=== PATIENT | female | born 1975 | race Native Hawaiian/Other Pacific Islander ===

== ENCOUNTER 2018-03-17 23:19 | Emergency (ER) | payer OTHER ==
[~2018-03-17] VITALS: Ht 170.2 cm; Wt 149.7 kg
[~2018-03-17 23:19] MED LIST: ACTICIN 5% CREA60 G1 TOP; AMOXICILLIN875 MG PO; CIPROFLOXACIN500 M1 PO; DAYQUIL; HYDROCODON-ACE1 EAC7 PO; HYDROCODONE-AP1 EAC6 PO; HYDROCODONE-APA1 TA1 PO; IBUPROFEN 800800 M1 PO; INDOMETHACIN 2525 MG PO; IRON325 M1 PO; MEDROLDOSEPACK PO; METFORMIN HCL500 MG PO; NAPROSYN500 MG PO; NOHOMEMEDICATIONS; NORCO 5-325 TA1 EAC1 PO; PAXIL10 MG; PREDNISONE 20 M20 MG PO; PROAIR HFA8.5 GM INH; TESSALON PERLE100 MG PO; TRAMADOL 50 MG50 MG PO
[2018-03-17 23:44] LABS: URINE BILIRUBIN NEGATIVE (Negative); URINE BLOOD 2+ (Negative); URINE CLARITY CLEAR; URINE COLOR YELLOW; URINE GLUCOSE-RANDOM NEGATIVE (Negative); URINE KETONES NEGATIVE (Negative); URINE LEUKOCYTES-REFLEX NEGATIVE (Negative); URINE NITRITE-REFLEX NEGATIVE (Negative); URINE PROTEIN NEGATIVE (Negative); URINE SPECIFIC GRAVITY >= 1.030 (1.005-1.030); URINE UROBILINOGEN 0.2 E.U./dl (0.2-1.0)
[2018-03-17 23:51] LABS: ABSOLUTE BASOPHILS 0.1 thou/uL (0.0-0.2); ABSOLUTE EOSINOPHILS 0.2 thou/uL (0.0-0.7); ABSOLUTE LYMPHOCYTES 3.3 thou/uL (0.8-5.3); ABSOLUTE MONOCYTES 1.1 thou/uL (0.0-1.2); ABSOLUTE NEUTROPHILS 7.1 thou/uL (1.6-8.1); EOSINOPHILS 1.8 %; HEMATOCRIT 38.2 % (37.0-47.0); HEMOGLOBIN 12.3 gm/dL (12.0-15.0); LYMPHOCYTES 27.8 %; MCHC 32.1 g/dL (28.0-37.0); MCV 84.2 fL (80.0-100.0); MPV 8.9 fl. (7.2-11.1); NUCLEATED RBCS 0 /100WBC; PLATELET COUNT* 201 thou/uL (150-400); POLYS 60.4 %; RBC 4.54 mil/uL (4.20-5.00); RDW-CV 16.6 % (10.5-14.5); WBC 11.8 thou/uL (4.0-11.0)
[2018-03-18 00:01] LABS: CALCIUM 8.8 mg/dL (8.5-10.1); POTASSIUM 3.7 mmol/L (3.5-5.1)
[2018-03-18 00:14] LABS: TOTAL BILIRUBIN 0.4 mg/dL (<0.1-1.0); TOTAL PROTEIN 7.8 g/dL (6.4-8.2)
[2018-03-18 00:25] LABS: CASTS None Seen /LPF (None Seen); CRYSTALS None Seen /LPF (None Seen); MUCUS 4-6 Moderate strn/LPF (None Seen); SQUAMOUS 0-3 Few /LPF (0-3); URINE RBC 3-10 Few /HPF (0-2); URINE WBC-REFLEX None Seen /HPF (0-5)
[2018-03-18] MEDS ORDERED: ACETAMINOPHEN-1 EAC1 PO (01:17)
[2018-03-18] MEDS ORDERED: KEFLEX500 M1 PO (01:17)
[2018-03-18] MEDS ORDERED: ZOFRAN4 MG PO (01:17)
[2018-03-18 01:34] VITALS: BP 103/70
== END 2018-03-18 01:36 | disposition home or self-care (01) ==
LOC: M.ERS 23:19
PROVIDERS: Personal Emergency Response Attendant
DX: N39.0 Urinary tract infection, site not specified (principal); Z90.710 Acquired absence of both cervix and uterus; Z85.42 Personal history of malignant neoplasm of other parts of uterus

== ENCOUNTER 2018-08-01 18:13 | Inpatient (IN) | payer OTHER ==
[~2018-08-01] VITALS: Ht 170.2 cm; Wt 148.3 kg
[~2018-08-01 18:13] MED LIST changes: +ACETAMINOPHEN-1 EAC1 PO; +KEFLEX500 M1 PO; +ZOFRAN4 MG PO
[2018-08-01 18:42] VITALS: BP 147/87
[2018-08-01] MEDS ORDERED: VENTOLIN HFA 1818 GM INH (18:46)
[2018-08-01 21:17] LABS: ABSOLUTE BASOPHILS 0.1 thou/uL (0.0-0.2); ABSOLUTE EOSINOPHILS 0.1 thou/uL (0.0-0.7); ABSOLUTE LYMPHOCYTES 2.5 thou/uL (0.8-5.3); ABSOLUTE MONOCYTES 0.5 thou/uL (0.0-1.2); ABSOLUTE NEUTROPHILS 4.5 thou/uL (1.6-8.1); BASOPHILS 1.6 %; EOSINOPHILS 1.7 %; HEMATOCRIT 36.3 % (37.0-47.0); HEMOGLOBIN 11.2 gm/dL (12.0-15.0); LYMPHOCYTES 32.1 %; MCH 26.3 pg (26.0-34.0); MCHC 30.7 g/dL (28.0-37.0); MCV 85.5 fL (80.0-100.0); MONOCYTES 6.4 %; MPV 8.9 fl. (7.2-11.1); NUCLEATED RBCS 0 /100WBC; PLATELET COUNT* 193 thou/uL (150-400); POLYS 58.2 %; RBC 4.24 mil/uL (4.20-5.00); RDW-CV 15.7 % (10.5-14.5); WBC 7.8 thou/uL (4.0-11.0)
[2018-08-01 21:23] LABS: ANION GAP 6 mmol/L (7-16); BUN 19 mg/dL (7-18); CHLORIDE 107 mmol/L (98-107); CO2 27 mmol/L (21-32); CREATININE 0.9 mg/dL (0.6-1.3); GLUCOSE 105 mg/dL (70-99); POTASSIUM 3.7 mmol/L (3.5-5.1); SODIUM 140 mmol/L (136-145)
[2018-08-01 21:27] LABS: APTT 26.8 Seconds (25.0-31.3); INR 1.3; PROTIME 13.1 Seconds (9.20-11.50)
[2018-08-01 21:31] LABS: ALBUMIN 2.9 g/dL (3.4-5.0); ALKALINE PHOSPHATASE 58 U/L (46-116); SGOT 44 U/L (15-37); SGPT 35 U/L (30-65); TOTAL PROTEIN 6.9 g/dL (6.4-8.2); TROPONIN-I LEVEL <0.06 ng/mL (<0.06)
[2018-08-01 21:37] LABS: MAGNESIUM 1.7 mg/dL (1.8-2.4)
[2018-08-02] VITALS (8 sets, daily range): BP systolic 93–132; BP diastolic 50–88
[2018-08-02 04:50] LABS: HEMATOCRIT 39.8 % (37.0-47.0); HEMOGLOBIN 12.3 gm/dL (12.0-15.0); MCH 26.3 pg (26.0-34.0); MCHC 30.8 g/dL (28.0-37.0); MCV 85.4 fL (80.0-100.0); RBC 4.66 mil/uL (4.20-5.00); RDW-CV 15.6 % (10.5-14.5); WBC 7.5 thou/uL (4.0-11.0)
[2018-08-02 05:31] LABS: ALBUMIN 3.2 g/dL (3.4-5.0); CALCIUM 8.5 mg/dL (8.5-10.1); CREATININE 0.9 mg/dL (0.6-1.3); POTASSIUM 3.9 mmol/L (3.5-5.1); TOTAL BILIRUBIN 1.2 mg/dL (<0.1-1.0); TOTAL PROTEIN 7.4 g/dL (6.4-8.2)
--- NOTE | 2018-08-02 06:53 | NUR ---
PT ADMITTED TO ROOM 222 DURING THIS SHIFT; VSS, A+OX4, DENIES THE NEED FOR PAIN MEDICATION, UP AD LAWANDA AND STEADY, 2L O2 NC. SHE IS ABLE TO COMMUNICATE HER NEEDS TO STAFF EFFECTIVELY. SHE HAS DENIED THE NEED FOR PAIN MEDICATION UP TO THIS TIME.
[2018-08-02 13:37] LABS: APTT 26.3 Seconds (25.0-31.3); INR 1.3; PROTIME 13.2 Seconds (9.20-11.50)
[2018-08-02 13:45] LABS: ANION GAP 5 mmol/L (7-16); BUN 16 mg/dL (7-18); CALCIUM 9.4 mg/dL (8.5-10.1); CHLORIDE 104 mmol/L (98-107); CO2 32 mmol/L (21-32); CREATININE 0.8 mg/dL (0.6-1.3); GLUCOSE 136 mg/dL (70-99); POTASSIUM 3.5 mmol/L (3.5-5.1); SODIUM 141 mmol/L (136-145)
[2018-08-02 13:46] LABS: SERUM ASSESSMENT Clear
[2018-08-02 13:56] LABS: CHOLESTEROL 118 mg/dL (<200); HDL CHOLESTEROL 36 mg/dL (>40); LDL CHOLESTEROL 74 mg/dL (<100); TC:HDL 3.3 Ratio (Not establshd); TRIGLYCERIDE 41 mg/dL (<150); VLDL 8 mg/dL (<40)
--- NOTE | 2018-08-02 14:16 | NUR ---
Nutrition: Consult for wt change. Pt denied any wt changes. She stated her usual wt is 320-325#. Current wt recorded as 327#. She was eating [employer] lunch during visit. She did not have a menu - RD provided pt with one and explained ordering. Low nutrition risk.
--- NOTE | 2018-08-02 14:56 | 2DMMODE ---
[place] [address] 2 D/M-MODE ECHOCARDIOGRAM Name: ZAKI ANDERSON Room: [address] IN [place]#: [id number] Admission: 08/01/18 Attend Phys: Neno Baca, Discharge: Date of : 75 Date of Service: 08/02/18 1455 Report #: [id number] THIS REPORT FOR: //name// APPROVED REPORT Study performed: 08/02/2018 10:43:56 EXAM: Comprehensive 2D, Doppler, and color-flow Echocardiogram Patient Location: In-Patient Room #: 222 Status: routine BSA: 2.47 HR: 73 bpm BP: 131/71 mmHg Rhythm: NSR Other Information Study Quality: Good Indications Dyspnea Cardiomegaly Elevated bnp 2D Dimensions IVSd: 10.06 (7-11mm) LVOT Diam: 22.07 (18-24mm) LVDd: 82.15 mm PWd: 10.82 (7-11mm) Ascending Ao: 33.06 (22-36mm) LVDs: 65.40 (25-40mm) Aortic Root: 32.26 mm Volumes Left Atrial Volume (Systole) LA ESV Index: 55.20 mL/m2 Aortic Valve AoV Peak Terrell.: 1.35 m/s AO Peak Gr.: 7.34 mmHg LVOT Max P.55 mmHg AO Mean Gr.: 4.57 mmHg LVOT Mean P.77 mmHg LVOT Max V: 0.62 m/s AO V2 VTI: 25.86 cm LVOT Mean V: 0.40 m/s NAVEEN (VTI): 1.92 cm2 LVOT V1 VTI: 13.01 cm Mitral Valve E/A Ratio: 1.89 [place] [address] 2 D/M-MODE ECHOCARDIOGRAM Name: ZAKI ANDERSON Room: [address] IN [facility].#: [id number] Admission: 08/01/18 Attend Phys: Neno Baca, Discharge: Date of : 75 Date of Service: 08/02/18 1455 Report #: [id number] MV Decel. Time: 198.91 ms MV E Max Terrell.: 1.20 m/s MV PHT: 57.68 ms MVA (PHT): 3.81 cm2 TDI E/Lateral E': 13.33 E/Medial E': 24.00 Medial E' Terrell.: 0.05 m/s Lateral E' Terrell.: 0.09 m/s Pulmonary Valve PV Peak Terrell.: 0.90 m/s PV Peak Gr.: 3.27 mmHg Tricuspid Valve RAP Estimate: 5.00 mmHg TR Peak Gr.: 27.88 mmHg RVSP: 33.00 mmHg PA Pressure: 33.00 mmHg Left Ventricle Left ventricle is severely dilated. There is severe global hypokinesis of the left ventricle. There is normal left ventricular wall thickness. Left ventricular systolic function is severely decreased. LVEF is 25-30%. Moderate diastolic dysfunction is present (pseudonormal filling). Right Ventricle Right ventricle is moderately dilated. The right ventricular systolic function is normal. Atria Left atrium is moderately dilated. Right atrium is moderately dilated. Aortic Valve Mild aortic valve sclerosis. No aortic regurgitation is present. Mild aortic stenosis. Mitral Valve The mitral valve is normal in structure. Mild mitral regurgitation. No evidence of mitral valve stenosis. Tricuspid Valve The tricuspid valve is normal in structure. Mild tricuspid regurgitation. The RVSP is 30-35 [place] [address] 2 D/M-MODE ECHOCARDIOGRAM Name: MONICAZAKI Room: [address]#: [id number] Admission: 08/01/18 Attend Phys: Neno Baca, Discharge: Date of : 75 Date of Service: 08/02/18 1455 Report #: [id number] The pulmonary valve is normal in structure. Trace pulmonic regurgitation. Great Vessels The aortic root is normal in size. IVC is normal in size and collapses >50% with inspiration. Pericardium There is no pericardial effusion. <Conclusion> Left ventricle is severely dilated. There is normal left ventricular wall thickness. Left ventricular systolic function is severely decreased. LVEF is 25-30%. Moderate diastolic dysfunction is present (pseudonormal filling). There is severe global hypokinesis of the left ventricle. Right ventricle is moderately dilated. Left atrium is moderately dilated. Right atrium is moderately dilated. Mild mitral regurgitation. Mild tricuspid regurgitation. The RVSP is 30-35 mmHg. <ELECTRONICALLY SIGNED> By: Neno Baca MD, FACC 08/02/18 1455 1455 1455 Neno Bcaa MD, FACC /INF
--- NOTE | 2018-08-02 15:58 | NUR ---
Pt is A&O. Resides at home with her and 4 kids. Active and independent. No DME. No hx of HH or SNF. Goal is home at pa. No needs anticipated. Following.
--- NOTE | 2018-08-02 18:04 | EKG ---
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 : 1975 Requested By: Chico Simpson Order Number: [id number] MD: Harish aMc Measurements Intervals [place] Rate: 100 P: 58 [place]: 153 QRS: 56 QRSD: 121 T: 104 QT: 408 QTc: 527 Interpretive Statements Sinus rhythm Ventricular bigeminy Nonspecific intraventricular conduction delay Nonspecific T abnormalities, lateral leads No previous ECG available for comparison Electronically Signed On 08-02-2018 18:03:58 CDT by Harish Mac [email or web address] <ELECTRONICALLY SIGNED> By: Harish Mac MD, FACC 08/02/18 1803 10 10 Harish Mac MD, FACC /EPI
--- NOTE | 2018-08-03 02:07 | NUR ---
PT HAD A TOTAL OF 21 RUNS OF V TACH. BP 115/61 . PT STATES THAT SHE FELT HER HEART RACING FOR A MINUTE BUT DENIES CHEST PAIN. HR 73. SHE FELL BACK TO SLEEP. CARDIAC SCRIPT PRINTED . PLACED IN CHART. MAG LEVEL DRAWN. DR VERNON PAGED TO OBTAIN ELCTROLYTE PROTOCOL ORDER. AWAITNG FOR MAG LEVEL, THEN WILL CALL SNAKE CHARMER. WILL CONTINUE TO MONITOR PT.
--- NOTE | 2018-08-03 02:29 | NUR ---
MAG RESULT CAME BACK TO 1.9. CARDIO PAGED AT THIS TIME. AWAITING CALL BACK.
--- NOTE | 2018-08-03 02:34 | NUR ---
CARDIO CALLED BACK. NEW ORDER RECEIVED TO REPLACE ELECTROLYTES. AND CALL BACK IF MORE THAN 20 RUNS OF VTACH.
[2018-08-03 05:02] VITALS: BP 99/58
--- NOTE | 2018-08-03 06:20 | NUR ---
ELECTROLYTES WERE REPLACED ORDERED. PT REMAINS ON SINUS RYTHM SINCE AFTER THE VT EPISODE.
[2018-08-03 07:44] VITALS: BP 103/55
[2018-08-03 10:30] LABS: CALCIUM 9.1 mg/dL (8.5-10.1); CREATININE 1.1 mg/dL (0.6-1.3); POTASSIUM 3.9 mmol/L (3.5-5.1)
[2018-08-03 12:00] VITALS: BP 104/63
[2018-08-03 16:00] VITALS: BP 101/57
--- NOTE | 2018-08-03 18:16 | NUR ---
ASSESSMENT COMPLETED REFER TO COMPUTER CHARTING. EQUIPMENT ASSOCIATE TRACKING SR. PATIENT REPORTING NO PAIN, NAUSEA OR SHORTNESS OF BREATH AT THIS TIME. BED IN LOW AND LOCKED POSITION. CALL LIGHT WITHIN REACH. PATIENT REPORTING CHEST PAIN ONCE AT 0920, NITRO GIVEN AT 0925, DR CONTRERAS ON UNIT AND NOTIFIED, NO NEW ORDERS RECIEVED. IV SALINE LOCKED. ON 2 LITERS VIA NASAL CANNULA. PATIENT UP SELF IN ROOM. WILL CONTINUE TO MONITOR THIS SHIFT.
[2018-08-04] VITALS: BP 105/40
[2018-08-04 03:59] VITALS: BP 107/66
[2018-08-04 04:45] LABS: HEMATOCRIT 43.1 % (37.0-47.0); HEMOGLOBIN 13.1 gm/dL (12.0-15.0); MCH 25.8 pg (26.0-34.0); MCHC 30.3 g/dL (28.0-37.0); MCV 85.1 fL (80.0-100.0); RBC 5.07 mil/uL (4.20-5.00); RDW-CV 16.2 % (10.5-14.5); WBC 18.7 thou/uL (4.0-11.0)
[2018-08-04 05:48] LABS: ALBUMIN 3.1 g/dL (3.4-5.0); CREATININE 0.9 mg/dL (0.6-1.3); MAGNESIUM 2.1 mg/dL (1.8-2.4); POTASSIUM 4.2 mmol/L (3.5-5.1); TOTAL PROTEIN 7.6 g/dL (6.4-8.2)
[2018-08-04 06:00] LABS: TOTAL BILIRUBIN 0.7 mg/dL (<0.1-1.0)
--- NOTE | 2018-08-04 07:10 | NUR ---
ASSUMED PT CARE AT 1930. NURSING ASSESSMENT COMPLETED THIS SHIFT. PT TRACING SINUS RHYTHM THIS SHIFT. DENIES CHEST PAIN THIS SHIFT. HOURLY ROUNDING COMPLETED. CALL LIGHT WITHIN REACH. VOICED NO CONCERNS THIS SHIFT.
[2018-08-04 08:00] VITALS: BP 126/66
--- NOTE | 2018-08-04 11:00 | EKG ---
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[ : 1975 Requested By: Harish Mac Order Number: [id number] Reading MD: Harish Mac Measurements Intervals [place] Rate: 74 P: 24 [place]: 168 QRS: 30 QRSD: 119 T: 118 QT: 425 QTc: 472 Interpretive Statements Sinus rhythm Probable left atrial enlargement LVH with secondary repolarization abnormality Compared to ECG 08/01/2018 20:11:39 Left ventricular hypertrophy now present Ventricular premature complex(es) no longer present Electronically Signed On 08-04-2018 11:00:09 CDT by Harish Mac [email or web address] <ELECTRONICALLY SIGNED> By: Harish Mac MD, FACC 08/04/18 1100 0929 0929 Harish Mac MD, [facility] /EPI
[2018-08-04 11:44] VITALS: BP 106/59
[2018-08-04 16:00] VITALS: BP 94/52
--- NOTE | 2018-08-04 18:41 | NUR ---
ASSESSMENT COMPLETED REFER TO COMPUTER CHARTING. WIND INSTRUMENT REPAIRER TRACKING SR. PATIENT REPORTING NO PAIN, NAUSEA OR SHORTNESS OF BREATH. BED IN LOW AND LOCKED POSITION. CALL LIGHT WITHIN REACH. FAMILY AT BEDSIDE. WILL CONTINUE TO MONITOR THIS SHIFT.
[2018-08-04 20:00] VITALS: BP 103/45
[2018-08-05] VITALS (18 sets, daily range): BP systolic 84–124; BP diastolic 43–70
--- NOTE | 2018-08-05 04:47 | NUR ---
ASSUMED PT CARE AT 1930. NURSING ASSESSMENT COMPLETED AT START OF SHIFT. PT VOICED NO CONCERNS THIS SHIFT. DENIES CHEST PAIN. PT TRACING SINUS RHYTHM. NPO AFTER MIDNIGHT FOR CARDIAC CATH. HOURLY ROUNDING COMPLETED. CALL LIGHT WITHIN REACH.
[2018-08-05 05:03] LABS: HEMATOCRIT 43.7 % (37.0-47.0); HEMOGLOBIN 13.2 gm/dL (12.0-15.0); MCH 25.9 pg (26.0-34.0); MCHC 30.2 g/dL (28.0-37.0); MCV 85.6 fL (80.0-100.0); MPV 9.2 fl. (7.2-11.1); RBC 5.1 mil/uL (4.20-5.00); RDW-CV 16.1 % (10.5-14.5); WBC 19.2 thou/uL (4.0-11.0)
[2018-08-05 05:18] LABS: CALCIUM 8.3 mg/dL (8.5-10.1); POTASSIUM 3.9 mmol/L (3.5-5.1)
--- NOTE | 2018-08-05 08:29 | NUR ---
ASSUMED CARE OF PT THIS AM AROUND 0715- DATABASE DEVELOPER IN PLACE ORDERED, TRACING SR- UPON ASSESSMENT PT NOTED TO BE RESTING IN BED- PT A&O X4- CONTINENT OF BOWEL AND BLADDER-UP AD-LAWANDA IN ROOM, STEADY GAIT NOTED- LCTA, RESP EVEN AND UN-LABORED- VSS, O2 SAT 98% ON 2L VIA NC- ABDOMEN SOFT/OBESE/NON-TENDER, BS X4 QUADS- LAST BM REPORTED 08/05/18- IV NOTED TO RIGHT AC INTACT AND SL- PT YENNI NPO FOR PLANNED CATH THIS AM- NETWORK ENGINEERING ADVISOR HERE TO GET PT THIS AM WITH PT NOTED TO LEAVE UNIT AT 0825- PT DENIES ANY C/O PAIN/DISCOMFORT THIS AM- ALL NEEDS MET AT THIS TIME-WCTM
--- NOTE | 2018-08-05 16:11 | NUR ---
PT LARISSAENLTY RESTING IN BED, ON PERSONAL COMPUTER- ASSISTANT PROGRAM MANAGER CONTINUED ORDERED, TRACING SR- HEART CATH PERFORMED THIS SHIFT ORDERED, PT OFF FLOOR FROM AROUND 0825 AND BACK TO FLOOR AROUND 1015- NO INTERVENTIONS REPORTED- CATH ACCESSED PER RIGHT WRIST WITH VASC BAND NOTED IN PLACE WITH 8CC REPORTED IN PLACE- VS POST CATH INITATED ORDERED- VASC BAND AIR REMOVED ORDERED, AND NOTED TO BE COMPLETED AT WITH VASC BAND REMOVED AND AREA CLEANED WITH WW, GAUZE PLACED AND COVERED WITH TRANSPRENT DRESSING AT 1315 WITH NO ISSUES NOTED- IVF INFUSSED POST CATH ORDERED AND D/C AROUND 1430 INDICATED- RIGHT AC INTACT AND SL- LIFE VEST ORDERED PER CARDIOLOGY AND SOLAR SALES REPRESENTATIVE AND ASSESSOR FROM [facility] HERE TO SEE PT THIS SHIFT, STATES THEY WILL RETURN THIS EVENING TO FIT PT FOR VEST INDICATED- ASPIRIN D/C'D THIS SHIFT PER PHYSICIAN- PT DENIES ANY C/O PAIN/DISCOMFORT AT THIS TIME- ALL NEEDS MET AT THIS TIME-WCTM
--- NOTE | 2018-08-05 18:08 | CARD ---
[address] [address] CARDIAC CATH REPORT Name: MONICAZAKI Room: [address] IN [facility].#: [id number] Admission: 08/01/18 Attend Phys: Neno Baca MD Discharge: Date of : 75 Report #: [id number] THIS REPORT FOR: //name// APPROVED REPORT Study performed: 08/05/2018 07:53:20 Patient Details Patient Status: In-Patient Room #: The patient is a 42 year-old Event Personnel Harish Mac Nitroglycerin Nitrator Operator Batch, Carmen Larson RN Ux Design Lead, Michael Rojas (R) Monitor, Frankie Ribeiro Scrub, Kavita Levin RTClare Scrub Procedures Performed Left Heart Cath w/or w/o Coronaries Indication Arrhythmia, Dyspnea, Cardiomyopathy Risk Factors Diabetes Admission/Lab Medications/Medications given during procedure Heparin Unfract. Procedure Narrative The patient was brought electively to the Cardiac Catheterization Laboratory and was prepped and draped in a sterile manner. The right wrist was infiltrated with 1% Lidocaine subcutaneous anesthesia. A Slender Glidesheath sheath was inserted into the right radial artery. Coronary angiography was performed using coronary diagnostic catheters. The right coronary system was accessed and visualized with a JR4 5fr catheter. The left coronary system was accessed and visualized with a JL 3.5 5fr catheter. The left ventricle was accessed and visualized with a PC: Angled Pig 5fr catheter. Left ventricular/Aortic Valve gradient assessed via catheter pullback. Left ventriculogram was performed in [place] projection. Closure device was deployed with a 6 Fr Extra Long Vasc Band. The patient tolerated the procedure well and there were no complications associated with the procedure. There was no hematoma[place] [address] CARDIAC CATH REPORT Name: MONICAZAKI Room: [address] IN [facility].#: [id number] Admission: 08/01/18 Attend Phys: Neno Baca MD Discharge: Date of : 75 Report #: [id number] Sedation start time: 9:09 Case end Time: 9:38 Fentanyl 25 mcg Versed 2 mg Fluoro Time: 3.7 minutes Dose: DAP 59427 cGycm2 1293 mGy Contrast Type and Amount: Visipaque 120 ml Coronary Angiography The patient's coronary anatomy is right dominant. [place] Artery Percent Stenosis Left Main: 0 % Prox LAD: 0 % Mid/Distal LAD: 0 % Circumflex: 0 % RCA: 0 % Ramus: 0 % Left Ventriculography The left ventricular ejection fraction is estimated to be 15-20%. There is no mitral insufficiency. Hemodynamics The aortic pressure is 100/65 mmHg with a mean of 72 mmHg. The left ventricular pressure is 104/25 mmHg with a mean of mmHg. The left ventricular end diastolic pressure is 26 mmHg. There was no gradient across the aortic valve upon pullback. Pullback from the left ventricle to the aorta revealed no gradient across the aortic valve. Conclusion 1. nonischemic cardiomyopathy Recommendations lifevest and consider ICD <ELECTRONICALLY SIGNED> By: Harish Mac MD, FACC 08/05/181807 07 07Davikasandra Mac MD, FACC /INF
[2018-08-05 23:10] LABS: GLYCOHEMOGLOBIN (HGB A1C) 6.4 % (4.8-5.6)
[2018-08-06] VITALS: BP 106/60
[2018-08-06 04:00] VITALS: BP 81/44
[2018-08-06 04:45] VITALS: BP 94/64
--- NOTE | 2018-08-06 05:44 | NUR ---
PATIENT RESTED IN BED. PATIENT DID NOT SHOW SIGNS OF DISTRESS. BLOOD PRESSURE WAS LOW, REASSED THEN INCREASED. FALL PRECAUTIONS IN PLACE, CALL LIGHT WITH IN REACH, HOURLY ROUNDING OBSERVED.
[2018-08-06 05:50] LABS: CALCIUM 8.3 mg/dL (8.5-10.1); CREATININE 0.8 mg/dL (0.6-1.3); POTASSIUM 4.1 mmol/L (3.5-5.1)
--- NOTE | 2018-08-06 08:00 | NUR ---
ASSUMED PT. CARE AND RECEIVED REPORT AT 0730. PT A/OX4, VSS, MONITOR ON TRACING SR. PT. DENIES CURRENT PAIN/SOB. ON RA @ 96%. FULL ASSESSMENT COMPLETED, REFER TO CHARTING. RIGHT WRIST CATH SITE WNL. PT. WITH LIFE VEST IN PLACE. CALL LIGHT IN REACH, WILL CONTINUE WITH PLAN OF CARE.
[2018-08-06 08:15] VITALS: BP 94/65
[2018-08-06] MEDS ORDERED: LASIX 40 MG TAB40 M2 PO (10:30)
[2018-08-06] MEDS ORDERED: CARVEDILOL3.125 MG PO (10:31)
[2018-08-06] MEDS ORDERED: COZAAR 25 MG TA25 M1 PO (10:31)
[2018-08-06] MEDS ORDERED: SPIRONOLACTONE25 M1 PO (10:32)
[2018-08-06] MEDS ORDERED: PACERONE 200 M200 M1 PO (10:33)
[2018-08-06 12:00] VITALS: BP 100/70
[2018-08-06 14:00] VITALS: BP 97/44
[2018-08-06] MEDS ORDERED: METFORMIN HCL500 MG PO (14:41)
--- NOTE | 2018-08-06 18:35 | NUR ---
DC ORDERS RECEIVED. IV AND MONITOR REMOVED. PT. GIVEN DC INSTRUCTIONS, SCRIPTS, AND CARENOTES. PT. VERBALIZED UNDERSTANDING OF ALL. PT. LEFT VIA WHEELCHAIR TO RETURN HOME IN PERSONAL VEHICLE WITH SPOUSE, ALL BELONGINGS ACCOUNTED FOR.
--- NOTE | 2018-08-12 09:08 | CON ---
[address] [address] CONSULTATION Name: MCKAYNICKZAKI Room: [address] IN [place].#: [id number] Admission: 08/01/18 Attend Phys: Neno Baca MD Discharge: 08/06/18 Date of : 75 Report #: [id number] THIS REPORT FOR: //name// CC: BR[facility]GER physician/PCP Emily Baca CARDIOLOGY CONSULTATION INDICATION: Probable cardiomyopathy. HISTORY OF PRESENT ILLNESS: The patient is a very pleasant 42-year-old [place] woman who was admitted to the hospital with 3 weeks of cough and shortness of breath. Overnight, she had some chest pain. She did rule out for myocardial infarction. A CTA of the chest showed no evidence of pulmonary embolus. She was noted to have marked cardiomegaly. Echocardiogram is pending. She had orthopnea and paroxysmal nocturnal dyspnea. Her symptoms were relieved with IV Lasix after admission. PAST MEDICAL HISTORY: 1. Asthma. 2. Hand surgery in 2005. 3. Bilateral tubal ligation in 2005. 4. Gout. 5. Uterine cancer, status post hysterectomy, 04/2018. FAMILY HISTORY: Noncontributory. The patient's father did have coronary artery disease at an older age. SOCIAL HISTORY: The patient quit smoking a year ago. She does not drink alcohol. REVIEW OF SYSTEMS: GENERAL: She denies convulsions, seizures or focal paralysis. In general, there is no unexplained weight loss or fever. RESPIRATORY: She has a cough. She denies sputum production. She denies COPD. She does have asthma. CARDIOVASCULAR: As outlined above. In addition, she denies edema. She denies murmur. ENDOCRINE: No history of diabetes or thyroid disease. GASTROINTESTINAL: No nausea, vomiting, hematemesis, melena, hematochezia or jaundice. GENITOURINARY: No dysuria or hematuria. HEMATOLOGIC AND LYMPHATIC: History of uterine cancer, as outlined above. ALLERGIC AND IMMUNOLOGIC: No significant seasonal or medical allergies. PSYCHIATRIC: She denies depression or anxiety. MUSCULOSKELETAL: She has mild arthritis [place] [address] CONSULTATION Name: MCKAYDELILAHYUMIKOZAKI Room: [address]#: [id number] Admission: 08/01/18 Attend Phys: Neno Baca MD Discharge: 08/06/18 Date of : 75 Report #: [id number] SKIN: No recent rashes, hives or chronic skin conditions. EYES: She does not wear glasses. She denies any acute change in vision. EARS, NOSE, MOUTH AND THROAT: She denies decreased hearing, epistaxis or dentures. PHYSICAL EXAMINATION: VITAL SIGNS: Stable. Blood pressure 121/71, pulse 72 and regular. GENERAL: This is a moderately obese, pleasant [place] female in no distress. Mood and affect appropriate. HEENT: O2 nasal cannula in place. Extraocular muscles intact. Mucous membranes are moist. NECK: Examination of the neck shows a thick neck without obvious jugular venous distention. There are no carotid bruits. CHEST: Examination of the chest reveals clear lung pradhan, without wheezes or rales. CARDIAC EXAMINATION: Reveals a regular rhythm. I do not appreciate a gallop or murmur. ABDOMEN: Examination of the abdomen reveals normal bowel sounds. The abdomen is soft and nontender. EXTREMITIES: Examination of the extremities shows no edema. Peripheral pulses are 2+ and easily palpable. SKIN: Warm and dry. LABORATORY DATA: A 12-lead EKG shows sinus rhythm with PVCs in a pattern of bigeminy. No acute ST or T-wave abnormalities are noted. Labs are reviewed. Electrolytes are within normal limits. BUN 17, creatinine 0.9 and serum glucose 141. LFTs are within normal limits. Troponin is less than 0.06. NT-proBNP was 3330. Chest x-ray shows cardiomegaly, without overt pulmonary vascular congestion. CTA shows no evidence of pulmonary embolus. IMPRESSION AND RECOMMENDATION: 1. Probable acute systolic heart failure secondary to cardiomyopathy. Echocardiogram ordered and pending. If the echo shows significant LV dysfunction, we will arrange cardiac catheterization to evaluate for possible underlying coronary artery disease. 2. Gout, presently stable. 3. History of tobacco use. The patient quit smoking a year ago. The patient is stable from a cardiac standpoint. [place] [address] CONSULTATION Name: ZAKI ANDERSON Room: [address] IN [facility].#: [id number] Admission: 08/01/18 Attend Phys: Neno Baca MD Discharge: 08/06/18 Date of : 75 Report #: [id number] cardiac workup including echo and likely cardiac catheterization. We will start on heart failure regimen if her echo shows significant LV dysfunction. <ELECTRONICALLY SIGNED> By: Neno Baca MD, FACC 08/12/18 0908 1133 0231[facility] Medical Centerbradly Baca MD, FACRamón /nt
== END 2018-08-06 18:00 | disposition home or self-care (01) | DRG 286 ==
LOC: M.ERS 18:13 → M.2W 23:15 → M.TBA-ER 23:15 → M.2W 08-02 00:15
PROVIDERS: Family Medicine; Internal Medicine Cardiovascular Disease; Nurse Practitioner Family; ADMIT Internal Medicine Cardiovascular Disease
PROC: B2151ZZ Fluoroscopy of Left Heart using Low Osmolar Contrast (ICD-10-PCS; principal; 2018-08-05)
PROC: 4A023N7 Measurement of Cardiac Sampling and Pressure, Left Heart, Percutaneous Approach (ICD-10-PCS; principal; 2018-08-05)
PROC: B2111ZZ Fluoroscopy of Multiple Coronary Arteries using Low Osmolar Contrast (ICD-10-PCS; principal; 2018-08-05)
DX: I50.41 Acute combined systolic (congestive) and diastolic (congestive) heart failure (principal); J96.01 Acute respiratory failure with hypoxia; E66.2 Morbid (severe) obesity with alveolar hypoventilation; J44.1 Chronic obstructive pulmonary disease with (acute) exacerbation; I47.2 Ventricular tachycardia; Z68.43 Body mass index [BMI] 50.0-59.9, adult; B33.24 Viral cardiomyopathy; B34.9 Viral infection, unspecified; M10.9 Gout, unspecified; E11.9 Type 2 diabetes mellitus without complications; Z90.710 Acquired absence of both cervix and uterus; Z87.891 Personal history of nicotine dependence; Z79.899 Other long term (current) drug therapy; Z82.49 Family history of ischemic heart disease and other diseases of the circulatory system

== ENCOUNTER → 2018-10-30 | Outpatient (CLI) | payer OTHER ==
[~2018-10-30] MED LIST changes: +CARVEDILOL3.125 MG PO; +COZAAR 25 MG TA25 M1 PO; +LASIX 40 MG TAB40 M2 PO; +PACERONE 200 M200 M1 PO; +SPIRONOLACTONE25 M1 PO; +VENTOLIN HFA 1818 GM INH
--- NOTE | 2018-10-30 18:03 | 2DMMODE ---
[place] [address] 2 D/M-MODE ECHOCARDIOGRAM Name: ZAKI ANDERSON [id number] Admission: 10/30/18 Attend Phys: Neno Baca, Discharge: Date of : 75 Date of Service: 10/30/18 1803 Report #: [id number] THIS REPORT FOR: //name// APPROVED REPORT Study performed: 10/30/2018 15:39:59 EXAM: Comprehensive 2D, Doppler, and color-flow Echocardiogram Patient Location: Out-Patient BSA: 2.48 HR: 82 bpm BP: 130/70 mmHg Other Information Study Quality: Good Indications Congestive Heart Failure 2D Dimensions IVSd: 13.15 (7-11mm) LVOT Diam: 20.22 (18-24mm) LVDd: 67.23 mm PWd: 12.69 (7-11mm) Ascending Ao: 27.00 (22-36mm) LVDs: 63.08 (25-40mm) Aortic Root: 29.98 mm Volumes Left Atrial Volume (Systole) LA ESV Index: 28.90 mL/m2 Aortic Valve AoV Peak Terrell.: 1.24 m/s AO Peak Gr.: 6.16 mmHg LVOT Max P.05 mmHg AO Mean Gr.: 3.75 mmHg LVOT Mean P.96 mmHg LVOT Max V: 0.72 m/s AO V2 VTI: 22.88 cm LVOT Mean V: 0.44 m/s NAVEEN (VTI): 1.89 cm2 LVOT V1 VTI: 13.45 cm Mitral Valve E/A Ratio: 1.68 MV Decel. Time: 186.47 ms MV E Max Terrell.: 1.20 m/s MV PHT: 54.08 ms MVA (PHT): 4.07 cm2 [place] [address] 2 D/M-MODE ECHOCARDIOGRAM Name: ZAKI ANDERSON Room: [facility]#: [id number] Admission: 10/30/18 Attend Phys: Neno Baca, Discharge: Date of : 75 Date of Service: 10/30/18 1803 Report #: [id number] TDI E/Lateral E': 10.91 E/Medial E': 20.00 Medial E' Terrell.: 0.06 m/s Lateral E' Terrell.: 0.11 m/s Pulmonary Valve PV Peak Terrell.: 0.86 m/s PV Peak Gr.: 2.97 mmHg Tricuspid Valve RAP Estimate: 5.00 mmHg TR Peak Gr.: 22.95 mmHg RVSP: 27.95 mmHg PA Pressure: 27.95 mmHg Left Ventricle Left ventricle is severely dilated. Mild concentric left ventricular hypertrophy. Left ventricular systolic function is severely decreased. LVEF is 20-25%. Severe diastolic dysfunction is present (restrictive filling). Right Ventricle The right ventricle is normal size. The right ventricular systolic function is normal. Atria Left atrium is moderately dilated. Right atrium is mildly dilated. Aortic Valve The aortic valve is normal in structure. No aortic regurgitation is present. There is no aortic valvular stenosis. Mitral Valve The mitral valve is normal in structure. Mild mitral regurgitation. No evidence of mitral valve stenosis. Tricuspid Valve The tricuspid valve is normal in structure. Mild tricuspid regurgitation. No pulmonary hypertension. Pulmonic Valve The pulmonary valve is normal in structure. There is no pulmonic valvular regurgitation. Great Vessels The aortic root is normal in size. IVC is dilated [place] [address] 2 D/M-MODE ECHOCARDIOGRAM Name: MONICAZAKI Room: [facility]#: [id number] Admission: 10/30/18 Attend Phys: Neno Baca, Discharge: Date of : 75 Date of Service: 10/30/18 1803 Report #: [id number] <50% with inspiration. Pericardium There is no pericardial effusion. <Conclusion> Left ventricle is severely dilated. Mild concentric left ventricular hypertrophy. Left ventricular systolic function is severely decreased. LVEF is 20-25%. Severe diastolic dysfunction is present (restrictive filling). The right ventricle is normal size. Left atrium is moderately dilated. Right atrium is mildly dilated. Mild mitral regurgitation. Mild tricuspid regurgitation. No pulmonary hypertension. IVC is dilated and collapses <50% with inspiration. <ELECTRONICALLY SIGNED> By: Neno Baca MD, FACC 10/30/181802 02 02 Neno Baca MD, FACC /INF
== END ==
LOC: M.CRD 15:30
DX: I08.1 Rheumatic disorders of both mitral and tricuspid valves (principal); I42.9 Cardiomyopathy, unspecified

== ENCOUNTER → 2018-11-25 | Outpatient (CLI) | payer OTHER ==
[2018-11-25 16:03] LABS: CALCIUM 9.3 mg/dL (8.5-10.1); CREATININE 1.2 mg/dL (0.6-1.3); POTASSIUM 4.1 mmol/L (3.5-5.1)
== END ==
LOC: M.LAB 15:40
PROVIDERS: Nurse Practitioner
DX: E11.9 Type 2 diabetes mellitus without complications (principal)

== ENCOUNTER → 2018-12-26 | Outpatient (CLI) | payer OTHER ==
[~2018-12-26] VITALS: Ht 170.2 cm; Wt 145.1 kg
[2018-12-26 10:50] VITALS: BP 118/54
[2018-12-26 11:05] LABS: HEMATOCRIT 41.6 % (37.0-47.0); HEMOGLOBIN 13.3 gm/dL (12.0-15.0); MCH 28.1 pg (26.0-34.0); MCV 87.7 fL (80.0-100.0); MPV 8.8 fl. (7.2-11.1); RBC 4.74 mil/uL (4.20-5.00); RDW-CV 15.4 % (10.5-14.5); WBC 5.5 thou/uL (4.0-11.0)
[2018-12-26 11:13] LABS: APTT 27.3 Seconds (25.0-31.3); PROTIME 10.7 Seconds (9.20-11.50)
[2018-12-26 11:17] LABS: ALBUMIN 2.9 g/dL (3.4-5.0); ALKALINE PHOSPHATASE 78 U/L (46-116); ANION GAP 3 mmol/L (7-16); BUN 20 mg/dL (7-18); CALCIUM 8.3 mg/dL (8.5-10.1); CHLORIDE 105 mmol/L (98-107); CHOLESTEROL 144 mg/dL (<200); CO2 30 mmol/L (21-32); GLUCOSE 104 mg/dL (70-99); HDL CHOLESTEROL 60 mg/dL (>40); LDL CHOLESTEROL 72 mg/dL (<100); POTASSIUM 4.3 mmol/L (3.5-5.1); SERUM ASSESSMENT Clear; SGOT 35 U/L (15-37); SGPT 30 U/L (30-65); SODIUM 138 mmol/L (136-145); TC:HDL 2.4 Ratio (Not establshd); TOTAL BILIRUBIN 0.5 mg/dL (<0.1-1.0); TOTAL PROTEIN 7.4 g/dL (6.4-8.2); TRIGLYCERIDE 60 mg/dL (<150); VLDL 12 mg/dL (<40)
[2018-12-26 13:09] VITALS: BP 135/64
[2018-12-26 13:27] VITALS: BP 132/64
[2018-12-26 13:44] VITALS: BP 139/70
--- NOTE | 2018-12-26 13:46 | EKG ---
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: [facility] : 1975 Requested By: Neno Baca Order Number: [id number] Marilin MD: Neno Baca Measurements Intervals [place] Rate: 65 P: 17 DE: 156 QRS: 3 QRSD: 131 T: 128 QT: 462 QTc: 481 Interpretive Statements Sinus rhythm Left bundle branch block Compared to ECG 08/03/2018 09:29:51 Left bundle-branch block now present Left ventricular hypertrophy no longer present Early repolarization no longer present Electronically Signed On 12-26-2018 13:46:35 CDT by Neno Baca [email or web address] <ELECTRONICALLY SIGNED> By: Neno Baca MD, FACC 12/26/18 1346 1030 1030 Neno Baca MD, FAC /EPI
[2018-12-26 14:02] VITALS: BP 124/67
--- NOTE | 2019-01-07 17:57 | CARD ---
[address] [address] CARDIAC CATH REPORT Name: ZAKI ANDERSON Room: [facility] JULIAN Reeves#: [id number] Admission: 12/26/18 Attend Phys: Neno Baca MD Discharge: Date of : 75 Report #: [id number] THIS REPORT FOR: //name// APPROVED REPORT Study performed: 12/26/2018 11:20:03 Patient Status: Out-Patient Room #: Event Personnel: Kym Lema Exam: insertion of a dual-chamber ICD. Indications: nonischemic cardiomyopathy The patient is a 43 year-old female with a history of nonischemic cardiomyopathy. Patient Info Last EF%: 25% Date: 10/30/18 NYHA Heart Class: II Reason for implant: Primary prevention Implanted Devices: Biotronik Ilivia 7 DR-T DF4 Pro MRI, model #470379, serial #[id number] dual-chamber ICD generator Biotronik Plexa ProMRI SD 65/18, model # 900129, serial # [id number] ICD Lead Biotronik Solia S 53, model # 674870, serial # [id number] atrial lead Procedure After informed consent was obtained the area of the left chest was prepped and draped in sterile fashion. Local anesthesia was achieved with 1% lidocaine. Next after an initial incision was made over the left pectoralis muscle a device pocket was formed using electrocautery and blunt dissection. Next using a seeker needle after a peripheral injection of IV contrast the left subclavian vein was accessed and ultimately a safety J guidewire advanced to the level of the right atrium under fluoroscopic guidance. Utilizing the seeker needle a second time the left subclavian vein was again accessed and a second safety J guidewire advanced to the level of the right atrium under fluoroscopic guidance. An 8 Fijian tear-away introducer was advanced over one of the guidewires. The guidewire and dilator were removed as a pacing ICD lead was advanced to a secure position within the right ventricular apex. The lead was actively fixed. Thresholds, sensing and impedances were checked and deemed to be satisfactory. There was no diaphragmatic stimulation [place] [address] CARDIAC CATH REPORT Name: MCKAYDELILAHZAKI CALDERON Room: [facility]#: [id number] Admission: 12/26/18 Attend Phys: Neno Baca MD Discharge: Date of : 75 Report #: [id number] Next using the remaining guidewire a second tear-away introducer was advanced over the guidewire. The dilator and guidewire were removed and an atrial lead advanced to a secure position within the right atrial appendage. The lead was actively fixed. Thresholds, sensing and impedances were checked and deemed to be satisfactory. There was no phrenic nerve stimulation with maximum output pacing. After adequate slack in the lead was assured the atrial and ICD leads the leads were secured within the device pocket using the designated cuffs and interrupted stitches of 0 silk suture. The device pocket was then flushed with antibiotic solution. Next a dual-chamber pacing ICD generator was attached to the atrial and ICD/ventricular leads. The device and redundant leads were then placed within the device pocket. The deep tissues were closed with interrupted stitches of 2-0 Vicryl. The skin incision was then closed with a single subcuticular stitch of 4-0 Vicryl. Several Steri-Strips were placed across the incision. A sterile Telfa dressing was then covered with a Tegaderm. The patient tolerated the procedure well without complication. Findings The sensed R-wave was 11.0 mV. The sensed P-wave was 1.7 mV. RV pacing threshold was 1 V at 0.40 ms. Right atrial pacing threshold was 0.6 V at 0.40 ms. RV pacing impedance was 566 ohms. Right atrial pacing impedance was 740 ohms. Shocking lead impedance was 51 ohms. VF detection rate was set at 240 bpm. VF detection rate was set at 154 bpm for slow VT and 182 bpm 4 fast VT. VF therapies were anicteric tach pacing times one followed by 40 J shocks 8. Slow VT therapy was for monitoring only. Fast VT therapies were anti-tach pacing 6 followed by 40 J shocks 8. Conclusion 1. Nonischemic cardiomyopathy. 2. Successful placement of a dual-chamber pacing ICD for primary prevention. Recommendations 1. Follow-up site check in one week. 2. Follow-up device interrogation in one month. <ELECTRONICALLY SIGNED> By: Neno Baca MD, FACC 01/07/191756 56 56Michaerhonda Baca MD, FACC /INF
== END | disposition home or self-care (01) ==
LOC: M.CL 09:33
PROVIDERS: Internal Medicine Cardiovascular Disease
DX: I42.9 Cardiomyopathy, unspecified (principal); I47.2 Ventricular tachycardia; I50.22 Chronic systolic (congestive) heart failure; M10.9 Gout, unspecified; J45.909 Unspecified asthma, uncomplicated; E66.01 Morbid (severe) obesity due to excess calories; Z90.710 Acquired absence of both cervix and uterus; Z98.890 Other specified postprocedural states; Z98.51 Tubal ligation status; Z79.899 Other long term (current) drug therapy; Z79.01 Long term (current) use of anticoagulants; Z87.891 Personal history of nicotine dependence

== ENCOUNTER 2019-02-15 17:58 | Emergency (ER) | payer OTHER ==
[~2019-02-15] VITALS: Ht 170.2 cm; Wt 142.9 kg
[2019-02-15] MEDS ORDERED: ENTRESTO 24 MG1 EACH PO (18:11)
[2019-02-15 18:52] LABS: ABSOLUTE BASOPHILS 0.1 thou/uL (0.0-0.2); ABSOLUTE EOSINOPHILS 0.2 thou/uL (0.0-0.7); ABSOLUTE MONOCYTES 0.9 thou/uL (0.0-1.2); ABSOLUTE NEUTROPHILS 5.9 thou/uL (1.6-8.1); EOSINOPHILS 2.4 %; HEMATOCRIT 40.8 % (37.0-47.0); HEMOGLOBIN 13.4 gm/dL (12.0-15.0); LYMPHOCYTES 21.4 %; MCHC 32.9 g/dL (28.0-37.0); MCV 88.3 fL (80.0-100.0); MONOCYTES 10.3 %; MPV 9.1 fl. (7.2-11.1); NUCLEATED RBCS 0 /100WBC; PLATELET COUNT* 165 thou/uL (150-400); POLYS 64.9 %; RBC 4.62 mil/uL (4.20-5.00); RDW-CV 16.6 % (10.5-14.5); WBC 9.1 thou/uL (4.0-11.0)
[2019-02-15 18:55] LABS: URINE BILIRUBIN NEGATIVE (Negative); URINE BLOOD 1+ (Negative); URINE CLARITY CLEAR; URINE COLOR STRAW; URINE GLUCOSE-RANDOM NEGATIVE (Negative); URINE KETONES NEGATIVE (Negative); URINE LEUKOCYTES-REFLEX NEGATIVE (Negative); URINE NITRITE-REFLEX NEGATIVE (Negative); URINE PROTEIN NEGATIVE (Negative); URINE SPECIFIC GRAVITY <= 1.005 (1.005-1.030); URINE UROBILINOGEN 0.2 E.U./dl (0.2-1.0)
[2019-02-15 19:01] LABS: SQUAMOUS 0-3 Few /LPF (0-3); URINE RBC 0-2 Rare /HPF (0-2); URINE WBC-REFLEX 0-5 Rare /HPF (0-5)
[2019-02-15 19:02] LABS: BACTERIA-REFLEX 1-9 Few /HPF (None Seen); CASTS None Seen /LPF (None Seen); CRYSTALS None Seen /LPF (None Seen); MUCUS None Seen strn/LPF (None Seen)
[2019-02-15 19:04] LABS: APTT 27.5 Seconds (25.0-31.3); PROTIME 10.7 Seconds (9.20-11.50)
[2019-02-15 19:13] LABS: ANION GAP 9 mmol/L (7-16); BUN 16 mg/dL (7-18); CALCIUM 6.5 mg/dL (8.5-10.1); CHLORIDE 112 mmol/L (98-107); CO2 25 mmol/L (21-32); CREATININE 0.9 mg/dL (0.6-1.3); GLUCOSE 78 mg/dL (70-99); SODIUM 146 mmol/L (136-145); TROPONIN-I LEVEL <0.06 ng/mL (<0.06)
[2019-02-15 19:14] LABS: ALBUMIN 2.5 g/dL (3.4-5.0); ALKALINE PHOSPHATASE 57 U/L (46-116); NT-PRO BRAIN NAT PEPTIDE 3637 pg/mL (<300); SGOT 25 U/L (15-37); SGPT 23 U/L (30-65); TOTAL BILIRUBIN 0.4 mg/dL (<0.1-1.0)
[2019-02-15 19:28] LABS: POTASSIUM 2.9 mmol/L (3.5-5.1)
[2019-02-15] MEDS ORDERED: AZITHROMYCIN500 MG PO (21:12)
[2019-02-15] MEDS ORDERED: VENTOLIN HFA 1818 GM INH (21:12)
[2019-02-15] MEDS ORDERED: POTASSIUM20 PO (21:12)
[2019-02-15] MEDS ORDERED: MEDROLDOSEPACK PO (21:12)
[2019-02-15 21:40] VITALS: BP 118/83
--- NOTE | 2019-02-16 13:44 | EKG ---
[place] [address] ELECTROCARDIOGRAM REPORT Name: ZAIK ANDERSON Room: [facility].#: [id number] Admission: 02/15/19 Attend Phys: Discharge: 02/15/19 Date of : 75 Report #: [id number] THIS REPORT FOR: //name// [facility] ED Test Date: 2019-02-15 Test Time: 18:46:52 Pat Name: ZAKI ANDERSON Department: Room: Gender: F Stove Cleaner: HERMILO : 1975 Requested By: Gladys Goldstein Order Number: [id number] MD: Harish Mac Measurements Intervals [place] Rate: 83 P: 31 PA: 153 QRS: 12 QRSD: 128 T: 139 QT: 385 QTc: 453 Interpretive Statements Sinus rhythm LEFT VENTRICULAR HYPERTROPHYwith repolarization changes Compared to ECG 12/26/2018 10:30:44 No significant changes Electronically Signed On 02-16-2019 13:44:02 CDT by Harish Mac [email or web address] <ELECTRONICALLY SIGNED> By: Harish Mac MD, [facility] 02/16/19 1344 1846 1846 aHrish Mac MD, [facility] /EPI
== END 2019-02-15 21:40 | disposition home or self-care (01) ==
LOC: M.ERS 17:58
PROVIDERS: Nurse Practitioner Family
DX: J18.9 Pneumonia, unspecified organism (principal); I50.9 Heart failure, unspecified; M10.9 Gout, unspecified; Z90.710 Acquired absence of both cervix and uterus; R04.2 Hemoptysis

== ENCOUNTER 2019-04-04 16:34 | Emergency (ER) | payer OTHER ==
[~2019-04-04] VITALS: Ht 170.2 cm; Wt 140.6 kg
[~2019-04-04 16:34] MED LIST changes: +AZITHROMYCIN500 MG PO; +ENTRESTO 24 MG1 EACH PO; +POTASSIUM20 PO
[2019-04-04 17:09] LABS: ABSOLUTE BASOPHILS 0.1 thou/uL (0.0-0.2); ABSOLUTE EOSINOPHILS 0.2 thou/uL (0.0-0.7); ABSOLUTE LYMPHOCYTES 2.1 thou/uL (0.8-5.3); ABSOLUTE NEUTROPHILS 6.3 thou/uL (1.6-8.1); BASOPHILS 0.8 %; EOSINOPHILS 2.2 %; HEMATOCRIT 37.8 % (37.0-47.0); HEMOGLOBIN 12.4 gm/dL (12.0-15.0); LYMPHOCYTES 21.5 %; MCH 29.6 pg (26.0-34.0); MCHC 32.7 g/dL (28.0-37.0); MCV 90.6 fL (80.0-100.0); MONOCYTES 10.4 %; MPV 8.9 fl. (7.2-11.1); NUCLEATED RBCS 0 /100WBC; PLATELET COUNT* 152 thou/uL (150-400); POLYS 65.1 %; RBC 4.17 mil/uL (4.20-5.00); RDW-CV 15.6 % (10.5-14.5); WBC 9.7 thou/uL (4.0-11.0)
[2019-04-04 17:16] LABS: ANION GAP 8 mmol/L (7-16); BUN 23 mg/dL (7-18); CALCIUM 8.7 mg/dL (8.5-10.1); CHLORIDE 107 mmol/L (98-107); CO2 29 mmol/L (21-32); CREATININE 1.1 mg/dL (0.6-1.3); GLUCOSE 126 mg/dL (70-99); POTASSIUM 3.9 mmol/L (3.5-5.1); SODIUM 144 mmol/L (136-145)
[2019-04-04 17:20] LABS: INR 1.1; PROTIME 10.8 Seconds (9.20-11.50)
[2019-04-04 17:31] LABS: ALBUMIN 3.3 g/dL (3.4-5.0); ALKALINE PHOSPHATASE 72 U/L (46-116); LIPASE 120 U/L (73-393); NT-PRO BRAIN NAT PEPTIDE 1394 pg/mL (<300); SGOT 22 U/L (15-37); SGPT 26 U/L (30-65); TOTAL BILIRUBIN 0.6 mg/dL (<0.1-1.0); TOTAL PROTEIN 7.6 g/dL (6.4-8.2); TROPONIN-I LEVEL <0.06 ng/mL (<0.06)
[2019-04-04] MEDS ORDERED: FLEXERIL PO (21:08)
[2019-04-04] MEDS ORDERED: NORCO 5-325 TA1 EAC1 PO (21:08)
[2019-04-04 21:23] VITALS: BP 107/71
--- NOTE | 2019-04-07 14:28 | EKG ---
[place] [address] ELECTROCARDIOGRAM REPORT Name: ZAKI ANDERSON Room: [facility]#: [id number] Admission: 04/04/19 Attend Phys: Discharge: 04/04/19 Date of : 75 Report #: [id number] THIS REPORT FOR: //name// [facility] ED Test Date: 2019-04-04 Test Time: 16:42:13 Pat Name: ZAKI ANDERSON Department: Room: Gender: F Assistant In Nursing: : 1975 Requested By: Glory Londono Order Number: [id number] MD: José Roa Measurements Intervals [place] Rate: 76 P: 22 [place]: 157 QRS: 11 QRSD: 128 T: 127 QT: 433 QTc: 487 Interpretive Statements Sinus rhythm Atrial premature complex Left bundle branch block Compared to ECG 02/15/2019 18:46:52 Atrial premature complex(es) now present Left bundle-branch block now present Electronically Signed On 04-07-2019 14:28:17 CDT by José Roa [email or web address] <ELECTRONICALLY SIGNED> By: José Roa MD, [facility] 04/07/19 1428 1642 1642 José Roa MD, [facility] /EPI
== END 2019-04-04 21:24 | disposition home or self-care (01) ==
LOC: M.ERS 16:34
PROVIDERS: Personal Emergency Response Attendant
DX: M25.512 Pain in left shoulder (principal); R07.89 Other chest pain; M54.2 Cervicalgia; M10.9 Gout, unspecified; I50.9 Heart failure, unspecified; Z90.710 Acquired absence of both cervix and uterus

== ENCOUNTER → 2019-06-20 | Outpatient (CLI) | payer OTHER ==
[~2019-06-20] MED LIST changes: +FLEXERIL PO; +K-DUR10 MEQ PO; +SPIRONOLACTONE25 MG PO
--- NOTE | 2019-06-26 15:07 | PATH ---
[place] [address] PATHOLOGY RPT PROCEDURE Name: ZAKI ANDERSON Room: [facility]#: [id number] Admission: 06/20/19 Date of : 75 Discharge: Report #: [id number] Path Case #: [id number] Note [facility] Accession Number: [id number] TESTS RESULT FLAG UNITS REF RANGE LAB Clinician Provided Cytology Information No. of containers..01 Other (Miscellaneous) Source: THYROID DIAGNOSIS: LEFT THYROID NODULE, IMAGE GUIDED FNA: B[place] CATEGORY : MALIGNANT PAPILLARY THYROID CARCINOMA SEE COMMENT: THIS INTERPRETATION INCLUDES EVALUATION OF A CELL BLOCK. (NAYA:pit; 06/25/2019) COMMENT: SCATTERED AGGREGATES OF CELLS WITH CYTOLOGIC FEATURES OF PAPILLARY CARCINOMA ARE NOTED IN SMEARS AND MULTIPLE FRAGMENTS SIMILARLY ARE PRESENT IN THE CELL BLOCK. DOROTEO, IN DR. ANA LUISA ACE'S OFFICE NOTIFIED AT APPROXIMATELY 13:20 ON 06/24/2019. REVIEWED WITH DR. BRYAN ROBERTSON WHO AGREES WITH THE DIAGNOSIS. (NAYA:pit; 06/25/2019) Pathologist ICD10: 01 E04.1 Signed out by: 02 Moreno Thomson MD, Pathologist NPI- [id number] Performed by: Ana Luisa Shiva, Lbd Teacher (ASCP) Gross description: 01 22ML, RED, CLOUDY /LCS 10/14/1840 0000 Local FLAG LEGEND: L-Low Normal,H-High Normal,LL-Alert Low,HH-Alert High <-Panic Low,>-Panic High,A-Abnormal,AA-Critical Abnormal Performed at: [address] [place] [address] Thai Agarwal MD, [address] [place] [address] [place] [address] Moreno Thomson MD, Specimen Comment: A courtesy copy of this report has been sent to Specimen Comment: [phone], . [facility] [address] [place] [address] PATHOLOGY RPT PROCEDURE Name: ZAKI ANDERSON Room: [facility]#: [id number] Admission: 06/20/19 Date of : 75 Discharge: Report #: [id number] Path Case #: [id number] Specimen Comment: Report sent to / DR ACE Performed at: [address] [facility] [place] [address] [facility] [address], [place], [place] [address] MD Thai Agarwal MD Phone: [phone]
== END | disposition home or self-care (01) ==
LOC: M.ULTRA 07:54
DX: C73 Malignant neoplasm of thyroid gland (principal); M10.9 Gout, unspecified; E11.9 Type 2 diabetes mellitus without complications; I50.9 Heart failure, unspecified; Z87.440 Personal history of urinary (tract) infections; Z98.890 Other specified postprocedural states; Z79.899 Other long term (current) drug therapy

== ENCOUNTER 2019-06-21 22:38 | Inpatient (IN) | payer OTHER ==
[~2019-06-21] VITALS: Ht 170.2 cm; Wt 147.7 kg
[~2019-06-21 22:38] MED LIST changes: -K-DUR10 MEQ PO; -SPIRONOLACTONE25 MG PO
[2019-06-21 22:43] VITALS: BP 137/71
[2019-06-21 23:28] LABS: ABSOLUTE EOSINOPHILS 0.1 thou/uL (0.0-0.7); ABSOLUTE LYMPHOCYTES 1.4 thou/uL (0.8-5.3); ABSOLUTE MONOCYTES 0.8 thou/uL (0.0-1.2); BASOPHILS 0.3 %; EOSINOPHILS 0.7 %; HEMATOCRIT 39.5 % (37.0-47.0); HEMOGLOBIN 12.6 gm/dL (12.0-15.0); LYMPHOCYTES 16.5 %; MCH 29.3 pg (26.0-34.0); MCHC 31.9 g/dL (28.0-37.0); MCV 91.7 fL (80.0-100.0); MONOCYTES 10.1 %; MPV 9.3 fl. (7.2-11.1); NUCLEATED RBCS 0 /100WBC; PLATELET COUNT* 146 thou/uL (150-400); POLYS 72.4 %; RBC 4.31 mil/uL (4.20-5.00); RDW-CV 14.6 % (10.5-14.5); WBC 8.3 thou/uL (4.0-11.0)
[2019-06-21 23:31] LABS: ANION GAP 6 mmol/L (7-16); BUN 18 mg/dL (7-18); CHLORIDE 106 mmol/L (98-107); CO2 27 mmol/L (21-32); GLUCOSE 104 mg/dL (70-99); POTASSIUM 4.3 mmol/L (3.5-5.1); SODIUM 139 mmol/L (136-145)
[2019-06-21 23:35] LABS: INR 1.1; PROTIME 11.2 Seconds (9.20-11.50)
[2019-06-21 23:47] LABS: ALKALINE PHOSPHATASE 64 U/L (46-116); LIPASE 153 U/L (73-393); NT-PRO BRAIN NAT PEPTIDE 3684 pg/mL (<300); SGOT 31 U/L (15-37); SGPT 31 U/L (30-65); TOTAL BILIRUBIN 0.6 mg/dL (<0.1-1.0); TOTAL PROTEIN 7.1 g/dL (6.4-8.2); TROPONIN-I LEVEL <0.06 ng/mL (<0.06)
[2019-06-22] VITALS (7 sets, daily range): BP systolic 88–151; BP diastolic 23–71
[2019-06-22 10:50] LABS: INFLUENZA A ANTIGEN Negative (Negative); INFLUENZA B ANTIGEN Negative (Negative)
--- NOTE | 2019-06-22 11:16 | EKG ---
[place] [address] ELECTROCARDIOGRAM REPORT Name: ZAKI ANDERSON Room: [address] ADM IN .R.#: [id number] Admission: 06/22/19 Attend Phys: Frankie Strickland MD Discharge: Date of : 75 Report #: [id number] THIS REPORT FOR: //name// [facility] ED Test Date: 2019-06-21 Test Time: 22:42:38 Pat Name: ZAKI ANDERSON Department: Room: [facility] Gender: F Boiler Room Operator: INDRA : 1975 Requested By: Glory Londono Order Number: [id number] MD: Dane Palm Measurements Intervals [place] Rate: 96 P: 48 [place]: 157 QRS: 34 QRSD: 127 T: 136 QT: 363 QTc: 459 Interpretive Statements Sinus rhythm Left bundle branch block Compared to ECG 04/04/2019 16:42:13 Atrial premature complex(es) no longer present Electronically Signed On 06-22-2019 11:15:50 CDT by Dane Palm [email or web address] <ELECTRONICALLY SIGNED> By: Dung Palm MD, [facility] 06/22/19 1115 2242 2242 Dung Palm MD, [facility] /EPI
[2019-06-23] VITALS: BP 93/46
[2019-06-23 04:00] VITALS: BP 103/44
[2019-06-23 07:51] VITALS: BP 139/48
[2019-06-23 10:11] LABS: ANA INTERPRETATION Negative (Negative)
[2019-06-23 11:30] VITALS: BP 97/40
--- NOTE | 2019-06-23 12:38 | CON ---
[address] [address] CONSULTATION Name: ZAKI ANDERSON Room: [address] IN .R.#: [id number] Admission: 06/22/19 Attend Phys: Frankie Strickland MD Discharge: Date of : 75 Report #: [id number] THIS REPORT FOR: //name// CC: [facility] physician/PCP Frankie Strickland CARDIOLOGY CONSULTATION HISTORY OF PRESENT ILLNESS: I was asked by Dr. Strickland to see this 43-year-old female in cardiology consultation for evaluation and treatment of chest pain and elevated BNP. The BNP was 3684. This lady has known dilated cardiomyopathy with chronic systolic and diastolic heart failure. She began developing aches and pains and malaise yesterday with body pains all over. She then developed chest pain. She developed right-sided chest pain that then moved substernally. She eventually came to the ER last night. She had quite a bit of body aches with this. There is quite a bit of malaise as well as shortness of breath. The pain is not present continuously, but it is persistent that comes and goes. There was no radiation to the back or neck or down her arms. So, he does have a history of congestive heart failure and chronic systolic and diastolic heart failure. She has a history of asthma as well as a dilated cardiomyopathy. The pain was moderately severe and had some sharp component and some dull component. She had some pleuritic component as well when she coughed, it would hurt. PAST MEDICAL HISTORY: Additionally includes hand surgery, bilateral tubal ligation, gout. She has had a hysterectomy for uterine cancer in 04/2008. She has a Bi-V ICD placed. She has a thyroid nodule. This lady did have a cardiac catheterization and coronary angiography in July of last year that showed normal coronary arteries and a left ventricular ejection fraction of 15-20%. Her last echo that I can find was in 10/2018 and showed her ejection fraction was 20-25%. There was mild left ventricular hypertrophy, mild mitral regurgitation and the left atrium was moderately dilated. HOME MEDICATIONS: Include albuterol inhaler 1 puff q. 4 hours p.r.n., amiodarone 200 mg daily, carvedilol 3.125 mg b.i.d. She is taking Lasix 40 mg daily. She takes [place] 5/325 one q. 4 hours p.r.n. and Entresto 24 mg/26 mg 1 tablet b.i.d. ALLERGIES: She has no known allergies. REVIEW OF SYSTEMS: As described above. She has not had any fever, chills or sweats. She has not had a cough. She has not had palpitations or tachycardia or syncope. She has not had abdominal pain, nausea, vomiting, diarrhea or GI blood loss. No symptoms. She has not had any symptoms related to her skin. No psychiatric or endocrine or hematologic symptoms. She has had dyspnea on exertion and shortness of breath at rest and some orthopnea. No eye [place] [address] CONSULTATION Name: MONICAZAKI DARLING Room: [address]#: [id number] Admission: 06/22/19 Attend Phys: Frankie Strickland MD Discharge: Date of : 75 Report #: [id number] SOCIAL HISTORY: She never smoked, does not use smokeless tobacco. She does use alcohol, but rarely. FAMILY HISTORY: There is a family history of heart disease in her father. She is not sure what it is. She has not had any diabetes or high blood pressure or clear-cut family history of coronary artery disease. She has not had hypercholesterolemia. PHYSICAL EXAMINATION: GENERAL: She presents as an obese, well-developed, well-nourished white female, in no acute distress. She is 5 feet 7 inches tall and 315 pounds. VITAL SIGNS: Her pulse was 75 and regular, blood pressure is 114/71, respirations 19 and regular and temperature was 100. Her respirations were 19 and regular. HEENT: His head was atraumatic. Eyes are clear. NECK: Supple. There was no jugular venous distention or hepatojugular reflux. Thyroid is not enlarged. There is no adenopathy. SKIN: Warm and dry. Mucous membranes are moist. LUNGS: Clear to auscultation and percussion. There were no wheezes. HEART: Revealed normal first and second heart sound. There is soft S4. There is no S3. There are no murmurs, rubs, thrills, heaves or gallops. PMI is nondisplaced. ABDOMEN: Soft, flat and nontender. No palpable masses, no organomegaly. EXTREMITIES: Reveal no cyanosis, clubbing or edema. LABORATORY DATA: Her troponins were negative x 2 and her chest x-ray was unremarkable and her EKG showed normal sinus rhythm with left bundle branch block. IMPRESSION: 1. Chest pain of uncertain cause. 2. Mild elevation of BNP, possible mild exacerbation of chronic systolic congestive heart failure. 3. Chronic systolic and diastolic heart failures with a mild exacerbation. 4. Dilated cardiomyopathy. 5. Nonsustained ventricular tachycardia. 6. Bi-V ICD. 7. Left bundle branch block. 8. Fever. RECOMMENDATION: Please see my orders and make sure this lady does not have influenza. Check another troponin. I would rule out a pulmonary embolism. I would recheck an echo, get a plain PA and lateral chest x-ray that she had a portable. I diuresed her a bit, put her back on Aldactone. I did a Lexiscan Cardiolite stress test and get her on Xopenex for her history of asthma and [facility] [address] [place] [address] CONSULTATION Name: ZAKI ANDERSON Room: [address] IN [facility]#: [id number] Admission: 06/22/19 Attend Phys: Frankie Strickland MD Discharge: Date of : 75 Report #: [id number] possible low level asthmatic issues currently. Thank you very much for asking me to see this patient. If there are any questions, please feel free to contact me. <ELECTRONICALLY SIGNED> By: Harish Mac MD, FACC 06/23/19 1238 1002 [id number]. Dane Palm MD, FACC /nt
--- NOTE | 2019-06-23 13:07 | 2DMMODE ---
[place] [address] 2 D/M-MODE ECHOCARDIOGRAM Name: ZAKI ANDERSON Room: [address] IN [facility]#: [id number] Admission: 06/22/19 Attend Phys: Frankie Strickland, Discharge: Date of : 75 Date of Service: 06/23/19 1306 Report #: [id number] THIS REPORT FOR: //name// APPROVED REPORT Study performed: 06/23/2019 10:44:31 EXAM: Comprehensive 2D, Doppler, and color-flow Echocardiogram Patient Location: In-Patient Room #: [facility] Status: routine BSA: 2.45 HR: 72 bpm BP: 139/48 mmHg Rhythm: NSR Other Information Study Quality: Good Indications Dyspnea Chest Pain 2D Dimensions IVSd: 12.48 (7-11mm) LVOT Diam: 22.07 (18-24mm) LVDd: 77.42 mm PWd: 12.61 (7-11mm) Ascending Ao: 31.94 (22-36mm) LVDs: 70.44 (25-40mm) Aortic Root: 31.57 mm Volumes Left Atrial Volume (Systole) LA ESV Index: 44.50 mL/m2 Aortic Valve AoV Peak Terrell.: 1.38 m/s AO Peak Gr.: 7.56 mmHg LVOT Max P.48 mmHg AO Mean Gr.: 4.54 mmHg LVOT Mean P.76 mmHg LVOT Max V: 0.61 m/s AO V2 VTI: 25.21 cm LVOT Mean V: 0.40 m/s NAVEEN (VTI): 1.64 cm2 LVOT V1 VTI: 10.82 cm Mitral Valve E/A Ratio: 1.67 MV Decel. Time: 281.78 [place] [address] 2 D/M-MODE ECHOCARDIOGRAM Name: ZAKI ANDERSON Room: [address] [place] [facility]#: [id number] Admission: 06/22/19 Attend Phys: Frankie Strickland, Discharge: Date of : 75 Date of Service: 06/23/19 1306 Report #: [id number] MV E Max Terrell.: 0.88 m/s MV PHT: 81.72 ms MVA (PHT): 2.69 cm2 TDI E/Medial E': 17.60 Medial E' Terrell.: 0.05 m/s Pulmonary Valve PV Peak Terrell.: 0.98 m/s PV Peak Gr.: 3.87 mmHg Left Ventricle Left ventricle is moderately dilated. There is severe diffuse hypokinesis of left ventricular wall motion. There is normal left ventricular wall thickness. Left ventricular systolic function is severely decreased. LVEF is 25%. The left ventricular diastolic function is normal. Right Ventricle The right ventricle is normal size. The right ventricular systolic function is normal. Pacemaker lead is present in the right ventricle. Atria Left atrium is moderately dilated. The right atrium size is normal. Aortic Valve The aortic valve is normal in structure. No aortic regurgitation is present. There is no aortic valvular stenosis. Mitral Valve The mitral valve is normal in structure. Mild to moderate mitral regurgitation. No evidence of mitral valve stenosis. Tricuspid Valve The tricuspid valve is normal in structure. Trace tricuspid regurgitation. Unable to assess PA pressure. Pulmonic Valve The pulmonary valve is normal in structure. There is no pulmonic valvular regurgitation. Great Vessels The aortic root is normal in size. IVC is normal in size and collapses >50% [place] [address] 2 D/M-MODE ECHOCARDIOGRAM Name: ZAKI ANDERSON Room: [address] [place] [facility]#: [id number] Admission: 06/22/19 Attend Phys: Frankie Strickland, Discharge: Date of : 75 Date of Service: 06/23/19 1306 Report #: [id number] Pericardium There is no pericardial effusion. <Conclusion> Left ventricle is moderately dilated. There is normal left ventricular wall thickness. Left ventricular systolic function is severely decreased. LVEF is 25%. The right ventricle is normal size. Left atrium is moderately dilated. The aortic valve is normal in structure. The mitral valve is normal in structure. Mild to moderate mitral regurgitation. No evidence of mitral valve stenosis. The tricuspid valve is normal in structure. IVC is normal in size and collapses >50% with inspiration. There is no pericardial effusion. There is severe diffuse hypokinesis of left ventricular wall motion. Pacemaker lead is present in the right ventricle. <ELECTRONICALLY SIGNED> By: José Roa MD, [facility] 06/23/19 1306 1306 1306 José Roa MD, FAC /INF
[2019-06-23 16:00] VITALS: BP 97/37
[2019-06-23 20:00] VITALS: BP 98/64
[2019-06-24] VITALS (7 sets, daily range): BP systolic 89–110; BP diastolic 39–74
[2019-06-24 12:02] LABS: ABSOLUTE EOSINOPHILS 0.1 thou/uL (0.0-0.7); ABSOLUTE LYMPHOCYTES 1.5 thou/uL (0.8-5.3); ABSOLUTE MONOCYTES 0.6 thou/uL (0.0-1.2); ABSOLUTE NEUTROPHILS 3.2 thou/uL (1.6-8.1); BASOPHILS 0.8 %; EOSINOPHILS 2.4 %; HEMATOCRIT 44.1 % (37.0-47.0); HEMOGLOBIN 14.2 gm/dL (12.0-15.0); LYMPHOCYTES 28.3 %; MCH 29.3 pg (26.0-34.0); MCHC 32.1 g/dL (28.0-37.0); MCV 91.3 fL (80.0-100.0); MONOCYTES 10.6 %; MPV 9.4 fl. (7.2-11.1); NUCLEATED RBCS 0 /100WBC; PLATELET COUNT* 159 thou/uL (150-400); POLYS 57.9 %; RBC 4.83 mil/uL (4.20-5.00); RDW-CV 14.3 % (10.5-14.5); WBC 5.5 thou/uL (4.0-11.0)
[2019-06-24 12:12] LABS: CALCIUM 9.1 mg/dL (8.5-10.1); CREATININE 0.8 mg/dL (0.6-1.3); MAGNESIUM 1.9 mg/dL (1.8-2.4); POTASSIUM 4.1 mmol/L (3.5-5.1)
[2019-06-25 04:41] VITALS: BP 104/53
[2019-06-25 05:35] LABS: CALCIUM 8.9 mg/dL (8.5-10.1); POTASSIUM 4.2 mmol/L (3.5-5.1)
[2019-06-25 08:00] VITALS: BP 104/70
[2019-06-25 08:16] VITALS: BP 104/70
[2019-06-25 12:17] VITALS: BP 97/44
[2019-06-25] MEDS ORDERED: LASIX 40 MG TAB40 M2 PO (12:46)
[2019-06-25] MEDS ORDERED: SPIRONOLACTONE25 MG PO (12:46)
[2019-06-25] MEDS ORDERED: K-DUR10 MEQ PO (12:46)
== END 2019-06-25 17:28 | disposition home or self-care (01) | DRG 292 ==
LOC: M.ERS 22:38 → M.2W 06-22 01:11 → M.TBA-ER 06-22 01:11 → M.2W 06-22 01:35
PROVIDERS: Family Medicine; Internal Medicine; Personal Emergency Response Attendant; ADMIT Internal Medicine
PROC: 2W3EX1Z Immobilization of Right Hand using Splint (ICD-10-PCS; principal; 2019-06-22)
DX: I50.43 Acute on chronic combined systolic (congestive) and diastolic (congestive) heart failure (principal); I47.2 Ventricular tachycardia; I42.0 Dilated cardiomyopathy; E44.0 Moderate protein-calorie malnutrition; Z68.43 Body mass index [BMI] 50.0-59.9, adult; I44.7 Left bundle-branch block, unspecified; E66.01 Morbid (severe) obesity due to excess calories; M10.9 Gout, unspecified; R07.2 Precordial pain; I95.9 Hypotension, unspecified; Z90.710 Acquired absence of both cervix and uterus; Z85.42 Personal history of malignant neoplasm of other parts of uterus; Z95.828 Presence of other vascular implants and grafts; Z82.49 Family history of ischemic heart disease and other diseases of the circulatory system; Z87.891 Personal history of nicotine dependence; Z79.899 Other long term (current) drug therapy; J45.909 Unspecified asthma, uncomplicated; Z95.810 Presence of automatic (implantable) cardiac defibrillator; I34.0 Nonrheumatic mitral (valve) insufficiency

== ENCOUNTER → 2019-07-14 | Outpatient (CLI) | payer OTHER ==
[~2019-07-14] MED LIST changes: +FUROSEMIDE 20 M20 M1 PO; +K-DUR10 MEQ PO; +LASIX 40 MG TAB40 MG PO; +PERCOCET 5-3251 EACH PO; +SPIRONOLACTONE25 MG PO
[2019-07-14 16:55] LABS: CALCIUM 8.9 mg/dL (8.5-10.1); CREATININE 1.3 mg/dL (0.6-1.3); POTASSIUM 3.7 mmol/L (3.5-5.1)
== END ==
LOC: M.LAB 16:20
PROVIDERS: Registered Nurse
DX: I42.9 Cardiomyopathy, unspecified (principal)

== ENCOUNTER 2019-07-27 19:33 | Emergency (ER) | payer OTHER ==
[~2019-07-27] VITALS: Ht 170.2 cm; Wt 147.4 kg
[~2019-07-27 19:33] MED LIST changes: -FUROSEMIDE 20 M20 M1 PO; -LASIX 40 MG TAB40 MG PO; -PERCOCET 5-3251 EACH PO
[2019-07-27] MEDS ORDERED: LASIX 40 MG TAB40 MG PO (19:51)
[2019-07-27 20:35] LABS: ABSOLUTE BASOPHILS 0.1 thou/uL (0.0-0.2); ABSOLUTE EOSINOPHILS 0.2 thou/uL (0.0-0.7); ABSOLUTE LYMPHOCYTES 2.5 thou/uL (0.8-5.3); ABSOLUTE NEUTROPHILS 5.7 thou/uL (1.6-8.1); BASOPHILS 1.2 %; EOSINOPHILS 2.1 %; HEMATOCRIT 39.1 % (37.0-47.0); MCH 29.7 pg (26.0-34.0); MCHC 33.1 g/dL (28.0-37.0); MCV 89.6 fL (80.0-100.0); MONOCYTES 10.1 %; MPV 8.7 fl. (7.2-11.1); NUCLEATED RBCS 0 /100WBC; PLATELET COUNT* 153 thou/uL (150-400); POLYS 60.6 %; RBC 4.36 mil/uL (4.20-5.00); RDW-CV 14.9 % (10.5-14.5); WBC 9.5 thou/uL (4.0-11.0)
[2019-07-27 20:49] LABS: CALCIUM 9.4 mg/dL (8.5-10.1); CREATININE 1.5 mg/dL (0.6-1.3); POTASSIUM 4.1 mmol/L (3.5-5.1)
[2019-07-27 20:54] LABS: ALBUMIN 3.2 g/dL (3.4-5.0); TOTAL BILIRUBIN 0.4 mg/dL (<0.1-1.0); TOTAL PROTEIN 7.5 g/dL (6.4-8.2)
[2019-07-27 22:43] VITALS: BP 112/70
== END 2019-07-27 22:43 | disposition home or self-care (01) ==
LOC: M.ERS 19:33
PROVIDERS: Nurse Practitioner Family
DX: M25.561 Pain in right knee (principal); M79.661 Pain in right lower leg; M54.9 Dorsalgia, unspecified; M10.9 Gout, unspecified; I50.9 Heart failure, unspecified; Z85.42 Personal history of malignant neoplasm of other parts of uterus; Z90.710 Acquired absence of both cervix and uterus

== ENCOUNTER → 2019-07-29 | Outpatient (CLI) | payer OTHER ==
[~2019-07-29] MED LIST changes: +FUROSEMIDE 20 M20 M1 PO; +LASIX 40 MG TAB40 MG PO; +PERCOCET 5-3251 EACH PO
== END ==
LOC: M.RAD 13:20
DX: Z12.31 Encounter for screening mammogram for malignant neoplasm of breast (principal)

== ENCOUNTER → 2019-08-08 | Outpatient (CLI) | payer OTHER | LOC: M.ULTRA 15:57 | DX: N63.12 Unspecified lump in the right breast, upper inner quadrant (principal); N63.21 Unspecified lump in the left breast, upper outer quadrant ==

== ENCOUNTER 2019-08-18 17:43 | Inpatient (IN) | payer OTHER ==
[~2019-08-18] VITALS: Ht 170.2 cm; Wt 152.9 kg
[~2019-08-18 17:43] MED LIST changes: -FUROSEMIDE 20 M20 M1 PO; -PERCOCET 5-3251 EACH PO
[2019-08-18 17:51] VITALS: BP 112/79
[2019-08-18 18:27] LABS: URINE BILIRUBIN NEGATIVE (Negative); URINE BLOOD 1+ (Negative); URINE CLARITY HAZY; URINE COLOR YELLOW; URINE GLUCOSE-RANDOM NEGATIVE (Negative); URINE KETONES NEGATIVE (Negative); URINE LEUKOCYTES-REFLEX NEGATIVE (Negative); URINE NITRITE-REFLEX NEGATIVE (Negative); URINE PROTEIN NEGATIVE (Negative); URINE SPECIFIC GRAVITY 1.025 (1.005-1.030)
[2019-08-18 18:29] LABS: ABSOLUTE BASOPHILS 0.1 thou/uL (0.0-0.2); ABSOLUTE EOSINOPHILS 0.2 thou/uL (0.0-0.7); ABSOLUTE LYMPHOCYTES 2.3 thou/uL (0.8-5.3); ABSOLUTE MONOCYTES 0.7 thou/uL (0.0-1.2); ABSOLUTE NEUTROPHILS 6.4 thou/uL (1.6-8.1); BASOPHILS 0.7 %; EOSINOPHILS 2.1 %; HEMATOCRIT 40.4 % (37.0-47.0); HEMOGLOBIN 13.4 gm/dL (12.0-15.0); LYMPHOCYTES 23.7 %; MCH 29.7 pg (26.0-34.0); MCV 89.8 fL (80.0-100.0); MONOCYTES 7.5 %; MPV 8.7 fl. (7.2-11.1); NUCLEATED RBCS 0 /100WBC; PLATELET COUNT* 157 thou/uL (150-400); RDW-CV 15.3 % (10.5-14.5); WBC 9.7 thou/uL (4.0-11.0)
[2019-08-18 18:40] LABS: AMORPHOUS URATES Few /LPF (None Seen); BACTERIA-REFLEX None Seen /HPF (None Seen); CASTS None Seen /LPF (None Seen); SQUAMOUS 4-10 Moderate /LPF (0-3); URINE RBC 0-2 Rare /HPF (0-2); URINE WBC-REFLEX None Seen /HPF (0-5)
[2019-08-18 18:45] LABS: CALCIUM 8.4 mg/dL (8.5-10.1); CREATININE 1.2 mg/dL (0.6-1.3); POTASSIUM 4.1 mmol/L (3.5-5.1)
[2019-08-18 18:55] LABS: ALBUMIN 2.9 g/dL (3.4-5.0); TOTAL BILIRUBIN 0.3 mg/dL (<0.1-1.0); TOTAL PROTEIN 6.8 g/dL (6.4-8.2)
[2019-08-18 22:50] VITALS: BP 93/26
[2019-08-18 23:04] VITALS: BP 80/42
[2019-08-19 00:30] VITALS: BP 103/48
--- NOTE | 2019-08-19 01:00 | NUR ---
RECEIVED REPORT FROM FURRIER APPRENTICE SID AT 0907. PT ARRIVED TO UNIT AT 2250. PT DENIED CHEST PAIN UPON ARRIVAL FROM ED, NO CONCERNS VOICED. IV FLUIDS INFUSING. DOUBLER OPERATOR IN PLACE, TRACING SR WITH PACS. PT ORIENTED TO ROOM AND CALL LIGHT. SON AT BESIDE.
[2019-08-19] MEDS ORDERED: PERCOCET 5-3251 EACH PO (02:51)
[2019-08-19] MEDS ORDERED: FUROSEMIDE 20 M20 M1 PO (02:53)
[2019-08-19 04:30] VITALS: BP 105/58
--- NOTE | 2019-08-19 05:13 | NUR ---
PT C/O CHEST PAIN THIS SHIFT, PAIN 4/10, SHARP ON RIGHT SIDE OF CHEST. EKG COMPLETED. NO CHANGES FROM PREVIOUS EKG. PT STATED CHEST PAIN 0 AFTER EKG COMPETION. VS STABLE. PT EDUCATED ON LETTING NURSING STAFF KNOW IF CHEST PAIN RETURNS. CALL LIGHT WITHIN REACH.
[2019-08-19 08:30] VITALS: BP 102/44
[2019-08-19 12:00] VITALS: BP 95/37
[2019-08-19 14:35] VITALS: BP 95/37
[2019-08-19 14:56] VITALS: BP 95/37
--- NOTE | 2019-08-19 15:34 | NUR ---
[facility]. REASSESSMENT COMPLETED CHARTED. MEDICATIONS GIVEN CHARTED. SAFTEY PRECAUTIONS UTILIZED. HOURLY ROUNDED FOR NEEDS. PT DISCHARGE TEACHING COMPLETED. PT VERBALIZED UNDERSTANDING. PT ESCORTED TO VEHICLE BY STAFF IN WHEELCHAIR.
--- NOTE | 2019-08-19 17:15 | EKG ---
[place] [address] ELECTROCARDIOGRAM REPORT Name: ZAKI ANDERSON Room: [address] [place] IN M.R.#: [id number] Admission: 08/18/19 Attend Phys: Emily Good MD Discharge: 08/19/19 Date of : 75 Report #: [id number] THIS REPORT FOR: //name// 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: [place] : 1975 Requested By: Nahum Wynne Order Number: [id number] MD: Neno Baca Measurements Intervals [place] Rate: 74 P: 7 [place]: 168 QRS: 25 QRSD: 133 T: 162 QT: 435 QTc: 483 Interpretive Statements Sinus rhythm Probable left atrial enlargement Left bundle branch block Baseline wander in lead(s) II,III,aVR,aVL,aVF Compared to ECG 06/21/2019 22:42:38 No significant changes Electronically Signed On 08-19-2019 17:15:08 ENGINEERING DESIGN SUPERVISOR by Neno Baca [email or web address] <ELECTRONICALLY SIGNED> By: Neno Baca MD, FACC 08/19/19 1715 175 175 Neno Baca MD, FACC /EPI
--- NOTE | 2019-08-19 17:25 | EKG ---
[place] [address] ELECTROCARDIOGRAM REPORT Name: ZAKI ANDERSON Room: [address] DIS IN M.R.#: [id number] Admission: 08/18/19 Attend Phys: Emily Good MD Discharge: 08/19/19 Date of : 75 Report #: [id number] THIS REPORT FOR: //name// [facility] Test Date: 2019-08-19 Test Time: 04:13:15 Pat Name: ZAKI ANDERSON Department: Room: [address] Gender: F Registered Client Associate: [place] : 1975 Requested By: Neno Baca Order Number: [id number] Marilin MD: Neno Baca Measurements Intervals [place] Rate: 60 P: 30 [place]: 172 QRS: 6 QRSD: 130 T: 156 QT: 482 QTc: 482 Interpretive Statements Sinus rhythm Left bundle branch block Compared to ECG 06/21/2019 22:42:38 No significant changes Electronically Signed On 08-19-2019 17:25:19 MANAGER SUPPLIER by Neno Baca [email or web address] <ELECTRONICALLY SIGNED> By: Neno Baca MD, [facility] 08/19/19 1725 0413 0413 Neno Baca MD, [facility] /EPI
--- NOTE | 2019-08-20 08:20 | CON ---
[address] [address] CONSULTATION Name: TOMMIE ANDERSONPRINCE DARLING Room: [address] IN [facility].#: [id number] Admission: 08/18/19 Attend Phys: Emily Good MD Discharge: 08/19/19 Date of : 75 Report #: [id number] THIS REPORT FOR: //name// CC: JACQUELIN Strong. Wiley Good INDICATION: Chest pain. HISTORY OF PRESENT ILLNESS: The patient is a very pleasant 43-year-old female well known to myself. She has a history of a nonischemic cardiomyopathy. Cardiac catheterization in 2017 showed normal coronary arteries. EF by echocardiogram in June was 25%. She is status post biventricular ICD placement, brought for chronotropic resynchronization therapy and primary prevention. She was admitted to the hospital through the Emergency Room complaining of chest discomfort that was not similar to symptoms she has had before. EKG shows sinus rhythm with left bundle-branch block. Cardiac enzymes were unremarkable x 2. At the time of my interview, she is no longer having chest discomfort. She does state the pain was somewhat worse with deep cough. There was no radiation. She denied any nausea or diaphoresis. PAST MEDICAL HISTORY: 1. Nonischemic cardiomyopathy, status post biventricular ICD placement. 2. Nonsustained ventricular tachycardia. 3. Chronic left bundle-branch block. 4. Asthma. 5. Gout. 6. Uterine cancer, status post hysterectomy. 7. Thyroid malignancy, status post thyroidectomy. 8. Bilateral tubal ligation in 2005. 9. Hand surgery in 2005. FAMILY HISTORY: Noncontributory. The patient's father had coronary artery disease at an older age. SOCIAL HISTORY: The patient quit smoking approximately a year and a half ago. She does not drink alcohol. HOME MEDICATIONS: Albuterol inhaler 1 puff q. 4 hours p.r.n., amiodarone 200 mg daily, carvedilol 3.125 mg b.i.d., furosemide 20 mg daily, Percocet 5/325 one tablet q. 4 hours p.r.n., potassium chloride 10 mEq p.o. daily, Entresto 24/26 mg 1 tablet b.i.d., spironolactone 25 mg daily. PHYSICAL EXAMINATION: VITAL SIGNS: Stable. Blood pressure 102/44, pulse 60 and regular. GENERAL: This is a pleasant lady in no distress. Mood and affect appropriate. HEENT: Extraocular muscles intact. [place] [address] CONSULTATION Name: MCKAYDELILAHYUMIKOZAKI Room: [address]#: [id number] Admission: 08/18/19 Attend Phys: Emily Good MD Discharge: 08/19/19 Date of : 75 Report #: [id number] NECK: Shows no jugular venous distention. There are no carotid bruits. CHEST: Reveals clear lung pradhan. CARDIOVASCULAR: Reveals a regular rhythm with normal S1 and S2. I do not appreciate gallop or murmur. ABDOMEN: Reveals normal bowel sounds. The abdomen is soft and nontender. EXTREMITIES: Shows no edema. SKIN: Warm and dry. IMPRESSION AND RECOMMENDATIONS: 1. Atypical chest pain, noncardiac. I suspect this is more musculoskeletal. No further evaluation from a cardiac standpoint. 2. Nonischemic cardiomyopathy, presently well compensated. Continue home regimen as outlined above. 3. Chronic left bundle-branch block, unchanged from comparison to previous EKGs. 4. History of nonsustained ventricular tachycardia by interrogation of her defibrillator. She is having no recurrence. Continue amiodarone 200 mg daily. From a cardiac standpoint, the patient appears stable. We will follow as needed. <ELECTRONICALLY SIGNED> By: Neno Baca MD, FACC 08/20/19 0820 0946 1223[facility] Centerbradly Baca MD, FACC /nt
== END 2019-08-19 15:16 | disposition home or self-care (01) | DRG 202 ==
LOC: M.ERS 17:43 → M.TBA-ER 21:13 → M.2W 21:13
PROVIDERS: Physician Assistant; ADMIT Internal Medicine
DX: J20.9 Acute bronchitis, unspecified (principal); I50.42 Chronic combined systolic (congestive) and diastolic (congestive) heart failure; I42.8 Other cardiomyopathies; Z68.43 Body mass index [BMI] 50.0-59.9, adult; R07.89 Other chest pain; Z90.710 Acquired absence of both cervix and uterus; M10.9 Gout, unspecified; I44.7 Left bundle-branch block, unspecified; J45.909 Unspecified asthma, uncomplicated; E89.0 Postprocedural hypothyroidism; E11.9 Type 2 diabetes mellitus without complications; E66.01 Morbid (severe) obesity due to excess calories; Z85.42 Personal history of malignant neoplasm of other parts of uterus; Z82.49 Family history of ischemic heart disease and other diseases of the circulatory system; Z84.89 Family history of other specified conditions; Z79.899 Other long term (current) drug therapy; Z85.850 Personal history of malignant neoplasm of thyroid; Z87.891 Personal history of nicotine dependence; Z95.810 Presence of automatic (implantable) cardiac defibrillator

== ENCOUNTER 2019-10-18 08:35 | Emergency (ER) | payer OTHER ==
[~2019-10-18] VITALS: Ht 170.2 cm; Wt 147.4 kg
[~2019-10-18 08:35] MED LIST changes: +FUROSEMIDE 20 M20 M1 PO; +PERCOCET 5-3251 EACH PO
[2019-10-18 09:28] LABS: INFLUENZA A ANTIGEN Negative (Negative); INFLUENZA B ANTIGEN Negative (Negative)
[2019-10-18 09:29] LABS: ABSOLUTE BASOPHILS 0.1 thou/uL (0.0-0.2); ABSOLUTE EOSINOPHILS 0.1 thou/uL (0.0-0.7); ABSOLUTE LYMPHOCYTES 2.5 thou/uL (0.8-5.3); ABSOLUTE MONOCYTES 0.7 thou/uL (0.0-1.2); ABSOLUTE NEUTROPHILS 3.6 thou/uL (1.6-8.1); BASOPHILS 0.8 %; EOSINOPHILS 1.8 %; HEMOGLOBIN 13.1 gm/dL (12.0-15.0); LYMPHOCYTES 36.1 %; MCH 30.4 pg (26.0-34.0); MCHC 33.5 g/dL (28.0-37.0); MCV 90.8 fL (80.0-100.0); MONOCYTES 10.6 %; MPV 8.8 fl. (7.2-11.1); NUCLEATED RBCS 0 /100WBC; PLATELET COUNT* 171 thou/uL (150-400); POLYS 50.7 %; RDW-CV 14.3 % (10.5-14.5)
[2019-10-18 09:48] LABS: APTT 27.1 Seconds (25.0-31.3); PROTIME 10.7 Seconds (9.20-11.50)
[2019-10-18 09:49] LABS: CALCIUM 7.9 mg/dL (8.5-10.1)
[2019-10-18 09:57] LABS: ALBUMIN 2.9 g/dL (3.4-5.0); CK-MB MASS 1.6 ng/mL (<0.5-3.6); MAGNESIUM 1.6 mg/dL (1.8-2.4); TOTAL BILIRUBIN 0.5 mg/dL (<0.1-1.0); TOTAL PROTEIN 7.3 g/dL (6.4-8.2)
[2019-10-18] MEDS ORDERED: PREDNISONE 20 M20 M1 PO (12:11)
[2019-10-18] MEDS ORDERED: ZPAK PO (12:11)
[2019-10-18 12:29] VITALS: BP 97/63
--- NOTE | 2019-10-19 09:56 | EKG ---
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: : 1975 Requested By: Kendell Garza Order Number: [id number] MD: Harish Mac Measurements Intervals [place] Rate: 79 P: 26 [place]: 177 QRS: 11 QRSD: 133 T: 144 QT: 408 QTc: 468 Interpretive Statements Sinus rhythm nonspecific t wave changes artifact noted Baseline wander in lead(s) V5 Compared to ECG 08/19/2019 04:13:15 No significant changes Electronically Signed On 10-19-2019 9:56:03 CAB SUPERVISOR by Harish Mac [email or web address] <ELECTRONICALLY SIGNED> By: Harish Mac MD, [facility] 10/19/19 0956 0842 0842 Harish Mac MD, [facility] /EPI
== END 2019-10-18 12:29 | disposition home or self-care (01) ==
LOC: M.ERS 08:35
PROVIDERS: Family Medicine
DX: J40 Bronchitis, not specified as acute or chronic (principal); M10.9 Gout, unspecified; I50.9 Heart failure, unspecified; E66.01 Morbid (severe) obesity due to excess calories; Z68.41 Body mass index [BMI] 40.0-44.9, adult; Z90.710 Acquired absence of both cervix and uterus

== ENCOUNTER → 2020-01-23 | Outpatient (CLI) | payer OTHER ==
[~2020-01-23] MED LIST changes: +PREDNISONE 20 M20 M1 PO; +ZPAK PO
== END ==
LOC: M.RAD 01-22 09:42
PROVIDERS: ATTEND Internal Medicine
DX: R92.8 Other abnormal and inconclusive findings on diagnostic imaging of breast (principal); C73 Malignant neoplasm of thyroid gland

== ENCOUNTER 2020-04-22 06:34 | Emergency (ER) | payer OTHER ==
[~2020-04-22] VITALS: Ht 170.2 cm; Wt 142.9 kg
[2020-04-22 07:46] LABS: ABSOLUTE BASOPHILS 0.1 thou/uL (0.0-0.2); ABSOLUTE EOSINOPHILS 0.2 thou/uL (0.0-0.7); ABSOLUTE LYMPHOCYTES 1.2 thou/uL (0.8-5.3); ABSOLUTE MONOCYTES 1.1 thou/uL (0.0-1.2); ABSOLUTE NEUTROPHILS 4.7 thou/uL (1.6-8.1); BASOPHILS 0.8 %; EOSINOPHILS 3.3 %; HEMATOCRIT 38.9 % (37.0-47.0); HEMOGLOBIN 12.9 gm/dL (12.0-15.0); LYMPHOCYTES 16.7 %; MCH 30.7 pg (26.0-34.0); MCHC 33.2 g/dL (28.0-37.0); MCV 92.5 fL (80.0-100.0); MONOCYTES 14.6 %; MPV 8.6 fl. (7.2-11.1); NUCLEATED RBCS 0 /100WBC; PLATELET COUNT* 169 thou/uL (150-400); POLYS 64.6 %; RBC 4.21 mil/uL (4.20-5.00); RDW-CV 14.1 % (10.5-14.5); WBC 7.3 thou/uL (4.0-11.0)
[2020-04-22 07:54] LABS: CALCIUM 8.3 mg/dL (8.5-10.1)
[2020-04-22 07:56] LABS: APTT 25.8 Seconds (25.0-31.3); PROTIME 10.7 Seconds (9.20-11.50)
[2020-04-22 08:08] LABS: ALBUMIN 3.3 g/dL (3.4-5.0); TOTAL BILIRUBIN 0.4 mg/dL (<0.1-1.0); TOTAL PROTEIN 7.8 g/dL (6.4-8.2)
[2020-04-22] MEDS ORDERED: NORCO 5-325 TA1 EAC2 PO (08:21)
[2020-04-22] MEDS ORDERED: ZPAK PO (08:21)
[2020-04-22] MEDS ORDERED: PREDNISONE 20 M20 M1 PO (08:21)
[2020-04-22 08:35] VITALS: BP 103/64
--- NOTE | 2020-04-22 12:44 | EKG ---
[place] [address] ELECTROCARDIOGRAM REPORT Name: ZAKI ANDERSON Room: 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[facility] : 1975 Requested By: Kendell Garza Order Number: [id number] MD: José Roa Measurements Intervals [place] Rate: 78 P: 39 [place]: 168 QRS: 21 QRSD: 136 T: 146 QT: 413 QTc: 471 Interpretive Statements Sinus rhythm Left bundle branch block Compared to ECG 10/18/2019 08:42:41 Left bundle-branch block persists Electronically Signed On 04-22-2020 12:44:07 CDT by José Roa [email or web address] <ELECTRONICALLY SIGNED> By: José Roa MD, [facility] 04/22/20 1244 José Roa MD, [facility] /EPI
== END 2020-04-22 08:36 | disposition home or self-care (01) ==
LOC: M.ERS 06:34
PROVIDERS: Family Medicine
DX: J40 Bronchitis, not specified as acute or chronic (principal); E66.01 Morbid (severe) obesity due to excess calories; M10.9 Gout, unspecified; Z68.42 Body mass index [BMI] 45.0-49.9, adult; Z90.710 Acquired absence of both cervix and uterus; Z85.42 Personal history of malignant neoplasm of other parts of uterus; Z98.51 Tubal ligation status

== ENCOUNTER 2020-04-28 08:36 | Emergency (ER) | payer OTHER ==
[~2020-04-28] VITALS: Ht 170.2 cm; Wt 142.9 kg
[~2020-04-28 08:36] MED LIST changes: +NORCO 5-325 TA1 EAC2 PO
[2020-04-28 10:31] VITALS: BP 122/69
== END 2020-04-28 10:25 | disposition home or self-care (01) ==
LOC: M.ERS 08:36
DX: U07.1 COVID-19 (principal); M10.9 Gout, unspecified; E66.01 Morbid (severe) obesity due to excess calories; Z79.899 Other long term (current) drug therapy; Z98.890 Other specified postprocedural states

== ENCOUNTER 2021-03-25 09:54 | Emergency (ER) | payer OTHER ==
[~2021-03-25] VITALS: Ht 170.2 cm; Wt 156.5 kg
[2021-03-25] MEDS ORDERED: HYDROCODON-ACE1 EAC7 PO (10:17)
[2021-03-25] MEDS ORDERED: FLEXERIL PO (10:17)
[2021-03-25 10:32] VITALS: BP 122/69
== END 2021-03-25 10:33 | disposition home or self-care (01) ==
LOC: M.ERS 09:54
DX: S76.012A Strain of muscle, fascia and tendon of left hip, initial encounter (principal); M10.9 Gout, unspecified; E66.01 Morbid (severe) obesity due to excess calories; Z68.43 Body mass index [BMI] 50.0-59.9, adult; X50.9XXA Other and unspecified overexertion or strenuous movements or postures, initial encounter; Y93.89 Activity, other specified; Y92.89 Other specified places as the place of occurrence of the external cause; Y99.8 Other external cause status

== ENCOUNTER 2021-07-03 07:19 | Observation (INO) | payer OTHER ==
[~2021-07-03] VITALS: Ht 170.2 cm; Wt 172.5 kg
--- NOTE | ~2021-07-03 | PROC ---
[address] [address] PROCEDURE REPORT Name: ZAKI ANDERSON Room: [address] [place]#: [id number] Admission: 07/03/21 Attend Phys: Etienne Schwab Discharge: 07/05/21 Date of : 75 Report #: [id number] THIS REPORT FOR: cc: Nidhi Jama. Nidhi Mendoza. JACQUELIN [facility],Medical Records Staff ~ For GI report, please see the Provation report in Perceptive 7 content. By: 0702Medical Records Staff MIKAELA /JONATHAN
[2021-07-03 07:29] VITALS: BP 107/70
[2021-07-03] MEDS ORDERED: ENTRESTO 97 MG1 EACH PO (07:34)
[2021-07-03 08:17] LABS: ABSOLUTE EOSINOPHILS 0.1 thou/uL (0.0-0.7); ABSOLUTE LYMPHOCYTES 1.7 thou/uL (0.8-5.3); ABSOLUTE MONOCYTES 0.9 thou/uL (0.0-1.2); ABSOLUTE NEUTROPHILS 6.1 thou/uL (1.6-8.1); BASOPHILS 0.5 %; EOSINOPHILS 1.7 %; HEMATOCRIT 38.1 % (37.0-47.0); HEMOGLOBIN 12.2 gm/dL (12.0-15.0); LYMPHOCYTES 19.5 %; MCH 29.7 pg (26.0-34.0); MCHC 32.1 g/dL (28.0-37.0); MCV 92.5 fL (80.0-100.0); MONOCYTES 10.1 %; MPV 8.7 fl. (7.2-11.1); NUCLEATED RBCS 0 /100WBC; PLATELET COUNT* 169 thou/uL (150-400); POLYS 68.2 %; RBC 4.12 mil/uL (4.20-5.00); RDW-CV 14.2 % (10.5-14.5)
[2021-07-03 08:30] LABS: CALCIUM 8.4 mg/dL (8.5-10.1); CREATININE 1.2 mg/dL (0.6-1.3); POTASSIUM 4.3 mmol/L (3.5-5.1)
[2021-07-03 08:42] LABS: ALBUMIN 3.3 g/dL (3.4-5.0); MAGNESIUM 1.9 mg/dL (1.8-2.4); TOTAL BILIRUBIN 0.6 mg/dL (<0.1-1.0); TOTAL PROTEIN 7.9 g/dL (6.4-8.2)
[2021-07-03 14:04] VITALS: BP 91/52
[2021-07-03 14:29] VITALS: BP 98/69
--- NOTE | 2021-07-03 14:55 | NUR ---
RECIEVIED REPORT FROM JOHN BURT IN ER OF EXPECTED ADMISSION AT 1352- DX: CHEST PAIN/HF- PT ARRIVED TO UNIT ROOM 209 CART, SBA WITH TRANSFER TO BED- FLORICULTURE PROFESSOR PLACED ORDERED, TRACING SR- PT A&O X4- CONT OF B/B- LCTA/DIMINISHED IN BASES, DYSPNEA NOTED ON EXERTION- PT REPORTS OCCASSIOAL DRY COUGH- BP NOTED TO BE LOW AT 98/69, PT NOTED TO HAVE NITRO PASTE IN PLACE AND WAS REMOVED PER THIS RN R/T LOW B- O2 SAT 100% ON RA- ABD SOFT/OBESE/NON-TENDER, BS X4 QUADS- LAST BM REPORTED 07/02/21- IV NOTED TO RIGHT AC INTACT AND SL- 2+ NON-PITTING EDEMA NOTED TO BLE- PT DENIES ANY OPEN SOARS/WOUNDS- PT REPORTS PAIN WITH EATING IN THROAT THAT SOMETIMES RADIATES TO LEFT SHOULDER- WHEN QUESTIONED IF SHE FEELS TIGHTNESS WITH FOOD WHEN SWALLOWING PT REPORTS YES, SLIGHT HOARNESS NOTED- UPDATED ON ASSESSMENT FINDINGS AND ORDERS NOTED FOR ST EVAL AND VIDEO SWALLOW WELL GI CONSULT- CALL LIGHT AND PERSONAL BELONGINGS WITH IN REACH- PT MAKES NEEDS KNOWN- ALL NEEDS MET AT THIS TIME
[2021-07-03 16:49] VITALS: BP 83/38
[2021-07-03 17:14] VITALS: BP 118/50
[2021-07-03 21:30] VITALS: BP 128/78
[2021-07-04 00:23] VITALS: BP 98/62
[2021-07-04 04:06] LABS: HEMATOCRIT 36.4 % (37.0-47.0); MCH 30.3 pg (26.0-34.0); MCHC 32.9 g/dL (28.0-37.0); MPV 8.8 fl. (7.2-11.1); RBC 3.96 mil/uL (4.20-5.00); RDW-CV 14.2 % (10.5-14.5); WBC 7.3 thou/uL (4.0-11.0)
[2021-07-04 04:26] LABS: CALCIUM 8.5 mg/dL (8.5-10.1); CREATININE 1.2 mg/dL (0.6-1.3); POTASSIUM 4.1 mmol/L (3.5-5.1)
[2021-07-04 04:29] LABS: CHOLESTEROL 137 mg/dL (<200); HDL CHOLESTEROL 45 mg/dL (>40); LDL CHOLESTEROL 72 mg/dL (<100); TRIGLYCERIDE 103 mg/dL (<150); VLDL 21 mg/dL (<40)
[2021-07-04 04:35] LABS: SERUM ASSESSMENT CLEAR
[2021-07-04 06:13] VITALS: BP 100/64
[2021-07-04 07:45] VITALS: BP 118/69
--- NOTE | 2021-07-04 11:42 | EKG ---
[place] [address] ELECTROCARDIOGRAM REPORT Name: ZAKI ANDERSON Room: [address] M.R.#: [id number] Admission: 07/03/21 Attend Phys: Reinaldo French Discharge: Date of : 75 Date of Service: 07/03/21 0727 Report #: [id number] THIS REPORT FOR: //name// [facility] ED Test Date: 2021-07-03 Test Time: 07:27:17 Pat Name: ZAKI ANDERSON Department: Room: 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: : 1975 Requested By: Murali Blanton Order Number: [id number] MD: José Roa Measurements Intervals [place] Rate: 69 P: 43 NM: 181 QRS: 18 QRSD: 144 T: 154 QT: 432 QTc: 463 Interpretive Statements Sinus rhythm Probable left atrial enlargement Atypical left bundle branch block Compared to ECG 04/22/2020 07:28:26 No significant changes Electronically Signed On 07-04-2021 11:42:48 CDT by José Roa [email or web address] <ELECTRONICALLY SIGNED> By: José Roa MD, [facility] 07/04/21 1142 0727 0727 José Roa MD, FAC /EPI
--- NOTE | 2021-07-04 11:44 | EKG ---
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
--- NOTE | 2021-07-04 12:53 | EKG ---
[place] [address] ELECTROCARDIOGRAM REPORT Name: ZAKI ANDERSON Room: [address] M.R.#: [id number] Admission: 07/03/21 Attend Phys: Reinaldo French Discharge: Date of : 75 Date of Service: 07/04/21 1051 Report #: [id number] THIS REPORT FOR: //name// [facility] Test Date: 2021-07-04 Test Time: 10:51:20 Pat Name: ZAKI ANDERSON Department: Room: [address] Gender: F Applications Support Analyst: JOHNATHAN : 1975 Requested By: Reinaldo French Order Number: [id number] Marilin MD: Neno Baca Measurements Intervals [place] Rate: 69 P: 52 [place]: 180 QRS: 36 QRSD: 147 T: 176 QT: 417 QTc: 447 Interpretive Statements Sinus rhythm IVCD, consider atypical LBBB Baseline wander in lead(s) V6 Compared to ECG 07/03/2021 11:24:14 No significant changes Electronically Signed On 07-04-2021 12:52:53 CDT by Neno Baca [email or web address] <ELECTRONICALLY SIGNED> By: Neno Baca MD, FACC 07/04/21 1252 1051 1051 Neno Baca MD, FACC /EPI
--- NOTE | 2021-07-04 13:43 | NUR ---
Nutrition: pt admitted with chest pain, HF. Consult for OBE. Pt's wt in March was 345#, this admit wt is 365#. H/o DM, OBE. 2gm Na diet ordered. BG 118, albumin 3.3. Pt has discharge orders for home today. Pt was busy at time of visit. Consider mild nutrition risk. Continue heart healthy diet.
[2021-07-04 14:09] VITALS: BP 141/89
--- NOTE | 2021-07-04 14:40 | NUR ---
Pt is A&O. Resides at home with . Independent. No DME. No hx of HH or SNF. Goal is home at dc, no needs anticipated. Cards and GI following. Anticipate dc later today.
[2021-07-04 16:00] VITALS: BP 150/72
--- NOTE | 2021-07-04 19:07 | NUR ---
PATIENT HAD A QUIET DAY6. TO HAVE COLONOSCOPY TOMORROW. VITAL SIGNS STABLE. PATIENT VERY PLEASANT.
[2021-07-04 20:00] VITALS: BP 95/52
--- NOTE | 2021-07-04 20:00 | NUR ---
RECEIVED REPORT AND ASSUMED CARE OF PT, ASSESSMENT COMPLETED. PT PLEASANT, DISCUSSED EGD AND NPO STATUS. STATES STILL PAINFUL TO SWALLOW BUT ATE COOKIES AND MILK WITHOUT DIFFICULTY. TELEMETRY ON SHOWING SR. WILL CONT TO MONITOR AND ASSIST NEEDED.
[2021-07-05 01:28] VITALS: BP 113/67
[2021-07-05 05:12] VITALS: BP 112/62
--- NOTE | 2021-07-05 06:07 | NUR ---
SLEPT WELL TO NIGHT. UP TO BR WITH STEADY GAIT AND SBA. NO COMPLAINTS VOICED. NPO SINCE MN FOR EGD TODAY. HS GOALS OF REST AND SAFETY ACHIEVED.
[2021-07-05 09:00] VITALS: BP 125/84
[2021-07-05 11:14] VITALS: BP 103/82
--- NOTE | 2021-07-05 12:24 | NUR ---
Anticipate dc later today post scopes. Per ST, Pt can have regular diet. No needs at dc
[2021-07-05 17:16] VITALS: BP 103/82
--- NOTE | 2021-07-07 12:36 | EKG ---
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
--- NOTE | 2021-07-07 15:11 | CON ---
[address] [address] CONSULTATION Name: ZAKI ANDERSON Room: [address] Ryan Reeves#: [id number] Admission: 07/03/21 Attend Phys: Etienne Schwab Discharge: 07/05/21 Date of : 75 Report #: [id number] THIS REPORT FOR: cc: Nidhi Jama. Nidhi Mendoza. Nicholas Duarte MD ~ DATE OF CONSULTATION: 07/04/2021 HISTORY OF PRESENT ILLNESS: This is a 45-year-old obese female with known cardiac history including hypertension and dilated cardiomyopathy. The patient is on diuretics and amiodarone for also history of ventricular tachycardia and left bundle branch block in the past. The patient reports that she had intermittent chest pain upon eating. She also reports that she had odynophagia and dysphagia for the past several days, which prompt her to come in to the hospital. PAST MEDICAL HISTORY: Stated as above. ALLERGIES: No known drug allergy. MEDICATIONS: Please refer to MAR. SOCIAL HISTORY: The patient is and lives at home. Denies tobacco or alcohol use. FAMILY HISTORY: Negative for GI malignancy. PHYSICAL EXAMINATION: VITAL SIGNS: Reveals blood pressure of 150/72, respirations 18, pulse 72, and temperature 98. LUNGS: Clear. CARDIOVASCULAR: Regular. ABDOMEN: Large, soft, nontender, nondistended. Bowel sounds are positive. NEUROLOGIC: The patient is alert and oriented x 3. LABORATORY DATA: Reveal sodium of 137, potassium 4.1, BUN is 18, creatinine 1.2, glucose is 118. Alk phos 73, albumin is 3.3. WBC is 7.3 with hemoglobin of 12 and platelets of 159. ASSESSMENT AND PLAN: The patient with noncardiac chest pain, [place] [address] CONSULTATION Name: ZAKI ANDERSON Room: [address] Ryan Reeves#: [id number] Admission: 07/03/21 Attend Phys: Etienne Schwab Discharge: 07/05/21 Date of : 75 Report #: [id number] odynophagia. We will schedule her for an upper scope tomorrow and make further recommendation based on finding. The patient is agreeable with the plan. <ELECTRONICALLY SIGNED> By: Nicholas Stone MD 07/07/21 1511 1620 1946Nicholas Stone MD /nt
== END 2021-07-05 20:30 | disposition home or self-care (01) ==
LOC: M.ERS 07:19 → M.TBA-ER 10:35 → M.2W 10:35 → M.TBA-ER 10:35 → M.2W 14:03
PROVIDERS: Emergency Medicine Emergency Medical Services; ADMIT Internal Medicine; ATTEND Internal Medicine
DX: K44.9 Diaphragmatic hernia without obstruction or gangrene (principal); K57.30 Diverticulosis of large intestine without perforation or abscess without bleeding; Z20.822 Contact with and (suspected) exposure to COVID-19; I42.8 Other cardiomyopathies; R13.10 Dysphagia, unspecified; R07.2 Precordial pain; I50.9 Heart failure, unspecified; E66.01 Morbid (severe) obesity due to excess calories; Z98.890 Other specified postprocedural states; Z90.710 Acquired absence of both cervix and uterus; Z68.43 Body mass index [BMI] 50.0-59.9, adult; Z79.899 Other long term (current) drug therapy

== ENCOUNTER 2021-10-09 22:52 | Emergency (ER) | payer OTHER ==
[~2021-10-09] VITALS: Ht 170.2 cm; Wt 113.0 kg
[~2021-10-09 22:52] MED LIST changes: +ENTRESTO 97 MG1 EACH PO
[2021-10-09 23:26] LABS: INFLUENZA A ANTIGEN Negative (Negative); INFLUENZA B ANTIGEN Negative (Negative)
[2021-10-10] MEDS ORDERED: AUGMENTIN 500-1 EACH PO (01:49)
[2021-10-10] MEDS ORDERED: MEDROLDOSEPACK PO (01:49)
[2021-10-10] MEDS ORDERED: PROMETHAZINE-C473 ML PO (01:49)
[2021-10-10 02:15] VITALS: BP 125/59
== END 2021-10-10 02:15 | disposition home or self-care (01) ==
LOC: M.ERS 22:52
PROVIDERS: Personal Emergency Response Attendant
DX: J06.9 Acute upper respiratory infection, unspecified (principal); Z20.822 Contact with and (suspected) exposure to COVID-19; R05.9 Cough, unspecified; R09.81 Nasal congestion; H66.91 Otitis media, unspecified, right ear; E66.01 Morbid (severe) obesity due to excess calories; Z98.51 Tubal ligation status; Z90.710 Acquired absence of both cervix and uterus; Z98.890 Other specified postprocedural states; Z79.899 Other long term (current) drug therapy